=== PATIENT | male | born 1945 | race Caucasian/White ===

== ENCOUNTER 2025-03-12 14:24 | Inpatient (IN) ==
--- NOTE | 2025-03-12 15:24 | Emergency Department Note ---
Impression & Plan Ribs, multiple fractures, Fall from standing, Abrasion of forehead ED Provider Note NAME: GABRIELLE MORAN AGE: 79 SEX: M : 1945 ARRIVES VIA: Ambulance INFORMANT: Patient ED PROVIDER(S): Tony Lee MD CHIEF COMPLAINT: Fall, left flank pain PLAN: Disposition: Admit MEDICAL DECISION MAKING: The patient is a pleasant 79-year-old gentleman with a past medical history of hypertension, hyperlipidemia, GERD who presents to the emergency department via EMS for evaluation of a fall when he tripped in a parking lot at a hardware store. Patient reports he fell onto his left side and was unable to get up due to pain. Patient reports he grazed his forehead on the ground but did not have any significant head strike. He denies loss of consciousness. He denies any neck pain. Patient does not take anticoagulation. He does take a daily low-dose aspirin. On evaluation the patient uncomfortable but no acute distress, afebrile with stable vital signs. Left worship demonstrates small contusion with minor skin abrasion without overt laceration requiring repair. He exhibits tenderness of the left lateral thoracic region without bony crepitus. There is no midline CTL spine tenderness palpation or step-offs. Pelvis is stable. Hips with full range of motion bilaterally. WBC, H/H and platelets within normal limits. Chemistry without metabolic acidosis. Electrolytes and LFTs without significant abnormality. Lipase normal. UA without evidence of infection. RBCs are noted. CT of the head was negative for acute abnormalities. CT of the cervical spine negative for acute traumatic injury. Question of fragmentation of the tip of the dens which is described as a well-corticated and likely related to old injury. No listhesis is identified. Atlantoaxial arthritis is present and additional cervical degenerative changes are described. CT of the chest demonstrates minimally displaced left posterior seventh-10 posterior ribs. No hemo or pneumothorax. No overt pulmonary contusions. Atelectasis is described bilaterally. CT of the abdomen pelvis demonstrates bilateral perinephric stranding and cysts which are nonspecific. Otherwise no additional acute traumatic findings. Findings reviewed with the patient and at the bedside. Patient does agree with plan for admission for further management/pain control. Case was discussed with Dr. Wells, admitting resident and [place]. Mitchell, [facility] [place], who will evaluate the patient for admission. Case also discussed with [facility] general surgery ELOISE with Dr. Kim, general surgery on-call. Recommend pain control and pulmonary toilet/IS. Case also discussed with Dr. Bains, orthopedic spine. Agrees cervical spine findings of the dens are likely old given they are well-corticated. Out of caution recommend cervical collar and MRI in the morning and they will be available for inpatient consult in the morning. Appreciate consultations and recommendations. Admitting team updated. Triage Nursing notes reviewed and agree them. Prior/external medical records reviewed Vital Signs: reviewed Differential diagnosis: Fracture, dislocation, contusion, intra-abdominal, pneumothorax, intrathoracic, intracranial, neurologic, compartment syndrome, rhabdomyolysis, as well as other pathologies. ER treatment provided: See below. Diagnostics interpreted by me: Cardiac Monitoring: An order for continuous cardiac monitoring was placed and demonstrated normal sinus rhythm, 64 bpm, no ectopy. Laboratory studies: See below Imaging studies: See below Consultation(s): Dr. Mitchell, [facility] [place] [facility] ELOISE with Dr. Kim general surgery on-call. HPI: Per MDM. ROS: See above HPI for pertinent positives & negatives. A total of 10 systems reviewed and were otherwise negative. VITALS:See Below PHYSICAL EXAMINATION: Primary Survey Airway: Intact Breathing: Normal, breath sounds equal bilaterally Circulation: Skin warm, distal pulses 2+, capillary refill less than 2 seconds Disability Pupils: Equal and reactive to light. GCS: 15, E = 5 V=5 M= 5 Motor Function: Moves all extremities. Sensory: No deficits Secondary Survey GEN: Well developed and well-nourished HEAD: Normocephalic, small abrasion/contusion of the left worship without overt laceration requiring repair.. EYES: Pupils round reactive to light, conjunctiva clear, extraocular movements intact, no raccoons eyes ENT: No fluid in external acoustic canals, no hemotympanum, no yanes's sign, nares patent, no septal hematoma, oropharynx clear NECK: No JVD, midline trachea, No midline tenderness to palpation or step-offs. HEART: Regular rate and rhythm LUNGS: Clear to auscultation bilaterally. CHEST: Chest wall non-tender, no bruising/deformity ABD: No Hernandez-Stroud's or Kenney's sign, soft, non-tender, no rebound or guarding, PELVIS: Stable to rock BACK: No midline TL spine tenderness to palpation or step-offs. Tenderness of the left lateral thoracic region without bony crepitus. EXT: 2+ global pulses, moving all extremities well, +5/5 muscle strength globally NEURO: Normal sensorium. Cranial nerves II-XII grossly intact. 5/5 strength and SILT x 4 extremities. Tony Lee MD Past Med/Surg History Problem List (Updated 03/12/25 @ 22:32 by Tony Lee MD) Abrasion of forehead (Acute) Fall from standing (Acute) Ribs, multiple fractures (Acute) Chest pain Essential tremor PAD (peripheral artery disease) Medical History GERD (gastroesophageal reflux disease) Hypertension Esotropia Amblyopia Photophobia Hyperopia Unspecified disorder of eyelid Partially resolved traumatic cataract, right eye Tobacco user Pseudophakia Osteoarthritis of knees, bilateral Sleep-related breathing disorder Severe sleep apnea Elevated C-reactive protein Dysuria Unilateral primary osteoarthritis, left knee Urinary frequency Surgical History S/P carpal tunnel release S/P vasectomy S/P nasal polypectomy S/P arthroscopy of right knee Family History Family/Other Hypertension Diabetes Cancer Other Bleeding disorder Social History Smoking Status: Never smoker Tobacco Type: Cigarettes packs per day: 0.25; Do You Dip or Chew Tobacco: Yes (0.5 can ); Hx Alcohol Use: No Hx Substance Use: No Beliefs That Will Affect Care: None marital status: Current Living Situation: Spouse current occupational status: employed current occupation: [employer] Feels Safe at Home: Yes Assistive Devices: None Allergies Allergies Allergy/AdvReac Type Severity Reaction Status Date / Time Penicillins Allergy Unknown ? Verified 08/09/24 13:57 Sulfa (Sulfonamide Allergy Hives Verified 08/09/24 13:57 Antibiotics) Home Meds Home Medications Medication Instructions Recorded Confirmed amlodipine 5 mg tablet (Norvasc) 5 mg PO DAILY 07/10/21 03/12/25 celecoxib 200 mg capsule (Celebrex) 200 mg PO DAILY 07/10/21 03/12/25 omeprazole 20 mg capsule,delayed 20 mg PO DAILY 07/10/21 03/12/25 release cholecalciferol (vitamin D3) 25 25 mcg PO DAILY 09/09/21 03/12/25 mcg (1,000 unit) capsule aspirin 81 mg chewable tablet 81 mg PO DAILY 04/23/23 03/12/25 propranolol 20 mg tablet 0 mg PO BID 03/12/25 03/12/25 Previous Rx's Medication Instructions Recorded atorvastatin 20 mg tablet 20 mg PO DAILY #90 tabs 01/30/25 Results & Data (ED) Vital Signs Vital Signs - 24 hr 03/12/25 14:33 03/12/25 16:21 03/12/25 16:21 Temperature 37 C Temperature Source Oral Pulse Rate [Apical] 64 Pulse Rhythm [Apical] Regular Pulse Strength [Apical] Normal Respiratory Rate 20 22 Respiratory Effort / Characteristics Non-Labored Spontaneous Non-Labored Respiratory Depth Normal Normal Blood Pressure 180/86 H Blood Pressure [Right Arm] 150/77 H Blood Pressure Mean 117 Blood Pressure Mean [Right Arm] 101 Pulse Oximetry 94 93 93 Oxygen Delivery Method Room Air Room Air Room Air Sepsis Recent Fever Within 48 Hours No Sepsis New/Unexplained Change in Mental Status N/A Sepsis Action Taken by Nursing No Action Required Laboratory Data Attestation: I reviewed the patient's lab results. 03/12/25 15:35 03/12/25 15:35 Lab Results 03/12/25 03/12/25 03/12/25 Range/Units 15:35 15:53 17:24 WBC 7.51 (4.8-10.8) K/ul RBC 4.91 (4.70-6.10) M/uL Hgb 16.5 (14.0-18.0) g/dl POC Hgb 16.0 (14.0-18.0) g/dl Hct 48.6 (42.0-52.0) % POC Hct 47 (42-52) % MCV 99.0 (80.0-100.0) fL MCH 33.6 (25.0-34.0) pg MCHC 34.0 (32.0-36.0) g/dL RDW Std Deviation 46.8 H (36.4-46.3) fL RDW Coeff of Ziggy 12.9 (11.5-14.5) % Plt Count 228 (130-400) K/uL MPV 9.4 (9.4-12.4) fL Immature Gran % (Auto) 0.7 % Neut % (Auto) 79.0 % Lymph % (Auto) 9.9 % [place] % (Auto) 6.5 % Eos % (Auto) 3.2 % Baso % (Auto) 0.7 % Neut # (Auto) 5.94 (1.40-6.50) K/uL Lymph # (Auto) 0.74 L (1.20-3.40) K/uL [place] # (Auto) 0.49 (0.11-0.59) K/uL Eos # (Auto) 0.24 (0.00-0.50) K/uL Baso # (Auto) 0.05 (0.00-0.20) K/uL Immature Gran # (Auto) 0.05 (0.01-0.20) K/uL PT 11.0 (9.0-12.0) Seconds INR 1.0 (0.9-1.1) APTT 24 (21-31) Seconds PTT Ratio 0.9 POC Sodium 139 (135-144) mmol/L Sodium 138 (136-145) mmol/L POC Potassium 3.9 (3.3-5.0) mmol/L Potassium 4.1 (3.5-5.1) mmol/L POC Chloride 104 (101-112) mmol/L Chloride 105 (98-107) mmol/L Carbon Dioxide 29 (21-32) mmol/L POC Total CO2 25 (24-31) mmol/L Anion Gap 4 (3-11) POC Anion Gap 16.0 (16-25) mmol/L POC BUN 22 H (7-18) mg/dl BUN 21 (6-23) mg/dl Creatinine 0.92 (0.6-1.4) mg/dl POC Creatinine 0.9 (0.6-1.3) mg/dl Est Cr Clr Drug Dosing 72.4 ml/min eGFR 84.62 BUN/Creatinine Ratio 22.8 H (10-20) Glucose 107 H (70-99(Fasting)) mg/dl POC Glucose (other) 115 H (70-99) mg/dl Calcium 9.6 (8.6-10.3) mg/dl POC Ioniz Calcium Ye 1.18 (1.12-1.32) mmol/l Total Bilirubin 0.9 (0.2-1.0) mg/dl AST 22 (13-39) U/L ALT 17 (7-52) U/L Alkaline Phosphatase 89 (34-104) U/L Total Protein 7.4 (6.0-8.3) gm/dl Albumin 4.2 (3.4-5.0) gm/dl Globulin 3.2 (2.5-4.0) gm/dl Albumin/Globulin Ratio 1.3 (0.9-2) Lipase 31 (11-82) U/L Urine Color Yellow Urine Appearance Clear (Clear) Urine pH 6.5 (4.5-7.5) Ur Specific [place] 1.034 H (1.000-1.030) Urine Protein Trace H (Negative) Urine Glucose (UA) Negative (Negative) Urine Ketones Negative (Negative) Urine Blood 2+ H (Negative) Urine Nitrite Negative (Negative) Urine Bilirubin Negative (Negative) Urine Urobilinogen Negative (Negative) Ur Leukocyte Esterase Negative (Negative) Urine WBC (Auto) 0-5 (0-5) /hpf Urine RBC (Auto) >20 H (0-2) /hpf U Hyaline Cast (Auto) 0-2 (0-2) /lpf U Epithel Cells (Auto) 3-5 H (0-2) /hpf Urine Bacteria (Auto) None Seen (None Seen) Urine Comment Administered Medications Acetaminophen (Acetaminophen 325 Mg Tab) 650 mg PO Q4H [facility] Stop: 04/11/25 19:59 Last Admin: 03/12/25 20:10 Dose: 650 mg Documented By: KYLE Morphine Sulfate (Morphine Sulfate 2 Mg/Ml Carp) 2 mg IV Q4H PRN PRN Reason: Severe Pain (Scale 7, 8, 9,10) Stop: 03/26/25 19:44 Last Admin: 03/12/25 20:37 Dose: 2 mg Documented By: KYLE Oxycodone HCl (Oxycodone Hcl Ir 5 Mg Tab (Immediate Release)) 5 mg PO Q6H PRN PRN Reason: Moderate Pain (Scale 4, 5, 6) Stop: 03/26/25 19:44 Last Admin: 03/12/25 21:08 Dose: 5 mg Documented By: RICHELLE Discontinued Medications Enoxaparin Sodium (Enoxaparin Inj 40 Mg/0.4 Ml Syr) 40 mg SQ Q24H [facility] Stop: 04/11/25 18:59 Last Admin: 03/12/25 20:11 Dose: Not Given Documented By: KYLE Sodium Chloride (Nss) 500 mls @ 999 mls/hr IV .Q31M ONE Stop: 03/12/25 15:52 Last Infusion: 03/12/25 16:20 Dose: Infused Documented By: jarvis Admin: 03/12/25 15:41 Dose: 999 mls/hr Documented By: jarvis Acetaminophen (Ofirmev) 1,000 mg in 100 mls @ 400 mls/hr IV NOW STA Stop: 03/12/25 15:36 Last Infusion: 03/12/25 15:57 Dose: Infused Documented By: jarvis Admin: 03/12/25 15:41 Dose: 400 mls/hr Documented By: jarvis Ioversol (Optiray 320 100ml) 90 ml IV ONCE ONE Stop: 03/12/25 16:11 Last Admin: 03/12/25 16:12 Dose: 90 ml Documented By: HUBERT Ioversol (Optiray 320 100ml) 90 ml IV ONCE ONE Stop: 03/12/25 20:25 Last Admin: 03/12/25 20:25 Dose: 90 ml Documented By: HUBERT Lidocaine (Lidocaine 5% 1 Patch) 1 patch TD NOW STA Stop: 03/12/25 17:52 Last Admin: 03/12/25 18:01 Dose: 1 patch Documented By: jarvis Morphine Sulfate (Morphine Sulfate 2 Mg/Ml Carp) 2 mg IV NOW STA Stop: 03/12/25 15:23 Last Admin: 03/12/25 15:41 Dose: 2 mg Documented By: jarvis Morphine Sulfate (Morphine Sulfate 4 Mg/Ml 1 Ml Carp\Vial) 4 mg IV NOW STA Stop: 03/12/25 17:52 Last Admin: 03/12/25 18:02 Dose: 4 mg Documented By: jarvis Imaging Data Radiologist's Impression: Chest X-Ray 03/12/25 15:18 XR chest 1V portable CLINICAL HISTORY: Trauma COMPARISON STUDY: None FINDINGS: Heart size and pulmonary vasculature are normal. Inspiration is shallow. There is stranding opacity in the lung bases with partial obscuration of the diaphragm. No pneumothorax. No grossly displaced rib fracture seen. IMPRESSION: Bilateral lung base opacity could represent scarring, atelectasis, pneumonia, or pulmonary contusions. ACT 112: Negative or not required by law. Electronically signed by: Aj Lu M.D. 03/12/2025 3:59 PM Abdomen/Pelvis CT 03/12/25 15:21 EXAMINATION: CT of the abdomen and pelvis performed after the administration of IV contrast. TECHNIQUE: Helical CT images from the lung bases through the symphysis pubis were obtained with contrast. Coronal and sagittal reformatted images were generated at a workstation for further assessment. Dose reduction techniques were achieved by using automatic exposure control and/or adjustment of mA and/or kV according to patient size and/or use of iterative reconstruction technique. HISTORY: Pain postinjury. COMPARISON: None. FINDINGS: [employer] film demonstrates mild subsegmental atelectasis. Lung windows demonstrate mild bibasilar subsegmental atelectasis. Soft tissue windows demonstrate moderate calcified atherosclerotic changes coronary vasculature. Trace left effusion. Hypodensities bilateral kidneys likely representing benign cysts. Additional predominantly hypodensity of the superior left renal pole with dependent hyperdensities likely representing hemorrhagic cyst. Mild bilateral nonspecific perinephric fat stranding. Uncomplicated 5 mm nonobstructing right renal calculus. Likely urinary bladder diverticula. Uncomplicated large bowel diverticulosis. Appendix is not identified. No secondary findings of appendiceal disease. Small uncomplicated fat-containing umbilical and inguinal hernias. Remaining solid and hollow organs of the abdomen and pelvis are within normal limits. No free air or free fluid. Bone windows demonstrate essentially nondisplaced posterior left included 8 through 11th rib fractures. Multilevel degenerative changes of the spine. No additional appreciated acute fractures. IMPRESSION: 1. Minimally displaced posterior included left 8th through 11th rib fractures with associated subsegmental atelectasis and trace effusion. CT chest would be helpful for further characterization. 2. Nonspecific bilateral perinephric fat stranding with uncomplicated nephrolithiasis and likely benign cysts. Additional fluid/fluid level superior left renal pole likely representing a hemorrhagic cyst. If old studies exist recommend making them available for comparison purposes. Otherwise recommend nonemergent follow-up ultrasound. Please see above for details. Electronically signed by Xavi Parker 03-12-2025 5:[address] 03/12/25 15:21 Clinical history: Injury Technique: Axial computed tomography images were obtained of the cervical spine without intravenous contrast. Sagittal and coronal reconstructions were obtained Findings: No definite acute fracture is identified. There is well corticated fragmentation of the tip of the dens that could be due to old injury. No listhesis is seen. No focal osseous lesion is evident. There is atlantoaxial osteoarthritis At C2-3, there is a mild disc bulge. There is no spinal stenosis. The neural foramen are patent At C3-4, there is a disc bulge without spinal stenosis. There is bilateral neural foramen narrowing that may affect the exiting C4 nerve roots At C4-5, there is a mild disc bulge without spinal stenosis. There is right neural foramen narrowing that may affect the right C5 nerve root At C5-6, there is a disc bulge without spinal stenosis. There is bilateral neural foramen narrowing that may affect the exiting C6 nerve roots At C6-7, there is a disc bulge. There is no spinal stenosis. The neural foramen are patent At C7-T1, there is a mild disc bulge. There is no spinal stenosis. The neural foramen are patent The lung apices appear clear. The visualized soft tissues of the neck appear unremarkable. No foreign body is seen Impression: 1. No definite acute cervical spine fracture 2. Fragmentation of the tip of the dens that could be due to old injury 3. Bilateral C3-4, right C4-5, and bilateral C5-6 neural foramen narrowing, which may affect the exiting nerve roots Electronically signed by Charles Mann 03-12-2025 6:[address] 03/12/25 15:21 Clinical history: Injury Technique: Axial computed tomography images were obtained of the chest after the administration of intravenous contrast Findings: There is bilateral lung base atelectasis. There is no pleural effusion or pneumothorax. There is no sign of pulmonary fibrosis or other diffuse interstitial process. No endobronchial lesion is seen There is no mediastinal, hilar, or axillary adenopathy. The thoracic aorta appears unremarkable with no sign of aneurysm or dissection. There is no pericardial effusion. There is coronary atherosclerosis There is a 6 cm right renal calculus. There is a 2.3 cm mixed low attenuation and high attenuation lesion in the upper left kidney. There are acute mildly displaced fractures of the left posterior seventh, eighth, ninth, and 10th ribs Impression: 1. Acute fractures of the left seventh through 10th ribs 2. No pneumothorax 3. Bilateral lung base atelectasis 4. Complex left renal lesion that may represent a proteinaceous or hemorrhagic cyst but is indeterminate in nature. A follow-up dedicated renal protocol abdominal CT or MRI could be obtained ACT 112: Positive. There are findings on this exam that require communication between the performing entity and the patient following Patient Test Result Information Act ([place] ACT 112) guidelines. Electronically signed by Charles Mann 03-12-2025 5:[address] 03/12/25 15:21 Clinical History: Fall Technique: Axial computed tomography images were obtained of the brain without intravenous contrast. Findings: There is diffuse cerebral atrophy, within expected limits for the patient's age. Areas of decreased attenuation are seen within the periventricular white matter, likely representing chronic small vessel ischemic disease. There is no definite sign of acute or old infarction. No intracranial hemorrhage is evident. No definite mass lesion is seen on this noncontrast examination. There is no midline shift or other form of herniation. No hydrocephalus is seen. There is cavum septum pellucidum and cavum vergae, normal variants No fracture is identified. The orbits and the visualized paranasal sinuses appear unremarkable. The mastoid air cells appear clear. Impression: 1. Cerebral atrophy and chronic small vessel ischemic disease 2. Otherwise unremarkable noncontrast CT of the brain Electronically signed by Charles Mann 03-12-2025 4:40 PM Discharge Plan Visit Data Chief Complaint: Fall ED Provider: Tony Lee Discharge Problem: Ribs, multiple fractures, Fall from standing, Abrasion of forehead Patient Disposition: Admitted As Inpatient Condition: Fair Discharge Instructions Interventions: ED Discharge Assessment Last Done: 03/12/25 20:44 Discharge Problem: Ribs, multiple fractures Qualifiers: Encounter type: initial encounter Fracture type: closed Laterality: left Q ualified Code(s): S22.42XA - Multiple fractures of ribs, left side, initial encounter for closed fracture Fall from standing Qualifiers: Encounter type: initial encounter Qualified Code(s): W19.XXXA - Unspecified fall, initial encounter Abrasion of forehead Qualifiers: Encounter type: initial encounter Qualified Code(s): S00.81XA - Abrasion of other part of head, initial encounter
[2025-03-12] MEDS: MoRPHine SULFATE 2 MG/ML CARP IV STA (15:41)
[2025-03-12] MEDS: SODIUM CHLORIDE 0.9% 500 ML IV ONE (15:41)
[2025-03-12] MEDS: ACETAMINOPHEN 1,000 MG/100 ML VIAL IV STA (15:41)
[2025-03-12 15:51] LABS: Hematocrit (blood only) 48.6 % (42.0-52.0); Hemoglobin 16.5 g/dl (14.0-18.0); Immature Granulocytes # (auto) 0.05 K/uL (0.01-0.20); Immature Granulocytes % (auto) 0.7 %; Mean Corpuscular Hemoglobin 33.6 pg (25.0-34.0); Mean Corpuscular Volume 99.0 fL (80.0-100.0); Platelet Count 228 K/uL (130-400); RDW Standard Deviation 46.8 fL (36.4-46.3); Red Blood Count 4.91 M/uL (4.70-6.10); White Blood Count 7.51 K/ul (4.8-10.8)
--- NOTE | 2025-03-12 16:01 | XRay Report ---
XR chest 1V portable CLINICAL HISTORY: Trauma COMPARISON STUDY: None FINDINGS: Heart size and pulmonary vasculature are normal. Inspiration is shallow. There is stranding opacity in the lung bases with partial obscuration of the diaphragm. No pneumothorax. No grossly dis placed rib fracture seen. IMPRESSION: Bilateral lung base opacity could represent scarring, atelectasis, pneumonia, or pulmona ry contusions. ACT 112: Negative or not required by law. Electronically signed by: Aj Lu M.D. 03/12/2025 3:59 PM
[2025-03-12 16:09] LABS: Alanine Aminotransferase 17.0 U/L (7-52); Albumin Globulin Ratio 1.3 (0.9-2); Albumin Level 4.2 gm/dl (3.4-5.0); Alkaline Phosphatase 89.0 U/L (34-104); Anion Gap 4.0 (3-11); Bilirubin,Total 0.9 mg/dl (0.2-1.0); Blood Urea Nitrogen 21.0 mg/dl (6-23); Calcium 9.6 mg/dl (8.6-10.3); Carbon Dioxide 29.0 mmol/L (21-32); Chloride 105.0 mmol/L (98-107); Creatinine Clr Calc Pharmacy 72.4 ml/min; Globulin 3.2 gm/dl (2.5-4.0); Glucose 107.0 mg/dl (70-99(Fasting)); Lipase 31.0 U/L (11-82); Potassium 4.1 mmol/L (3.5-5.1); Sodium 138.0 mmol/L (136-145); Total Protein 7.4 gm/dl (6.0-8.3)
[2025-03-12] MEDS: OPTIRAY 320 100ml IV ONE ×2 (16:12→20:25)
[2025-03-12 16:22] LABS: INR 1.0 (0.9-1.1); Partial Thromboplastin Time 24 Seconds (21-31); Prothrombin Time 11.0 Seconds (9.0-12.0)
--- NOTE | 2025-03-12 16:40 | CT Scan Report ---
Clinical History: Fall Technique: Axial computed tomography images were obtained of the brain without intravenous contrast. Findings: There is diffuse cerebral atrophy, within expected limits for the patient's age. Areas of decreased attenuation are seen within the periventricular white matter, likely representing chronic small vessel ischemic disease. There is no definite sign of acute or old infarction. No intracranial hemorrhage is evident. No definite mass lesion is seen on this noncontrast examination. There is no midline shift or other form of herniation. No hydrocephalus is seen. There is cavum septum pellucidum and cavum vergae, normal variants No fracture is identified. The orbits and the visualized paranasal sinuses appear unremarkable. The mastoid air cells appear clear. Impression: 1. Cerebral atrophy and chronic small vessel ischemic disease 2. Otherwise unremarkable noncontrast CT of the brain Electronically signed by Charles Mann 03-12-2025 4:40 PM
--- NOTE | 2025-03-12 17:04 | CT Scan Report ---
Clinical history: Injury Technique: Axial computed tomography images were obtained of the chest after the administration of intravenous contrast Findings: There is bilateral lung base atelectasis. There is no pleural effusion or pneumothorax. There is no sign of pulmonary fibrosis or other diffuse interstitial process. No endobronchial lesion is seen There is no mediastinal, hilar, or axillary adenopathy. The thoracic aorta appears unremarkable with no sign of aneurysm or dissection. There is no pericardial effusion. There is coronary atherosclerosis There is a 6 cm right renal calculus. There is a 2.3 cm mixed low attenuation and high attenuation lesion in the upper left kidney. There are acute mildly displaced fractures of the left posterior seventh, eighth, ninth, and 10th ribs Impression: 1. Acute fractures of the left seventh through 10th ribs 2. No pneumothorax 3. Bilateral lung base atelectasis 4. Complex left renal lesion that may represent a proteinaceous or hemorrhagic cyst but is indeterminate in nature. A follow-up dedicated renal protocol abdominal CT or MRI could be obtained ACT 112: Positive. There are findings on this exam that require communication between the performing entity and the patient following Patient Test Result Information Act ([place] ACT 112) guidelines. Electronically signed by Charles Mann 03-12-2025 5:03 PM
[2025-03-12 17:45] LABS: Appearance Urine Clear (Clear); Bacteria Urine Automated None Seen (None Seen); Cast Urine Automated 0-2 /lpf (0-2); Glucose Urine UA Negative (Negative); RBC Urine Automated >20 /hpf (0-2); WBC Urine Automated 0-5 /hpf (0-5)
--- NOTE | 2025-03-12 17:57 | CT Scan Report ---
EXAMINATION: CT of the abdomen and pelvis performed after the administration of IV contrast. TECHNIQUE: Helical CT images from the lung bases through the symphysis pubis were obtained with contrast. Coronal and sagittal reformatted images were generated at a workstation for further assessment. Dose reduction techniques were achieved by using automatic exposure control and/or adjustment of mA and/or kV according to patient size and/or use of iterative reconstruction technique. HISTORY: Pain postinjury. COMPARISON: None. FINDINGS: Lead Esthetician film demonstrates mild subsegmental atelectasis. Lung windows demonstrate mild bibasilar subsegmental atelectasis. Soft tissue windows demonstrate moderate calcified atherosclerotic changes coronary vasculature. Trace left effusion. Hypodensities bilateral kidneys likely representing benign cysts. Additional predominantly hypodensity of the superior left renal pole with dependent hyperdensities likely representing hemorrhagic cyst. Mild bilateral nonspecific perinephric fat stranding. Uncomplicated 5 mm nonobstructing right renal calculus. Likely urinary bladder diverticula. Uncomplicated large bowel diverticulosis. Appendix is not identified. No secondary findings of appendiceal disease. Small uncomplicated fat-containing umbilical and inguinal hernias. Remaining solid and hollow organs of the abdomen and pelvis are within normal limits. No free air or free fluid. Bone windows demonstrate essentially nondisplaced posterior left included 8 through 11th rib fractures. Multilevel degenerative changes of the spine. No additional appreciated acute fractures. IMPRESSION: 1. Minimally displaced posterior included left 8th through 11th rib fractures with associated subsegmental atelectasis and trace effusion. CT chest would be helpful for further characterization. 2. Nonspecific bilateral perinephric fat stranding with uncomplicated nephrolithiasis and likely benign cysts. Additional fluid/fluid level superior left renal pole likely representing a hemorrhagic cyst. If old studies exist recommend making them available for comparison purposes. Otherwise recommend nonemergent follow-up ultrasound. Please see above for details. Electronically signed by Xavi Parker 03-12-2025 5:54 PM
[2025-03-12] MEDS: LIDOCAINE 5% 1 PATCH TD STA ×2 (18:01→22:25)
[2025-03-12] MEDS: MoRPHine SULFATE 4 MG/ML 1 ML CARP\\VIAL IV STA (18:02)
--- NOTE | 2025-03-12 18:06 | CT Scan Report ---
Clinical history: Injury Technique: Axial computed tomography images were obtained of the cervical spine without intravenous contrast. Sagittal and coronal reconstructions were obtained Findings: No definite acute fracture is identified. There is well corticated fragmentation of the tip of the dens that could be due to old injury. No listhesis is seen. No focal osseous lesion is evident. There is atlantoaxial osteoarthritis At C2-3, there is a mild disc bulge. There is no spinal stenosis. The neural foramen are patent At C3-4, there is a disc bulge without spinal stenosis. There is bilateral neural foramen narrowing that may affect the exiting C4 nerve roots At C4-5, there is a mild disc bulge without spinal stenosis. There is right neural foramen narrowing that may affect the right C5 nerve root At C5-6, there is a disc bulge without spinal stenosis. There is bilateral neural foramen narrowing that may affect the exiting C6 nerve roots At C6-7, there is a disc bulge. There is no spinal stenosis. The neural foramen are patent At C7-T1, there is a mild disc bulge. There is no spinal stenosis. The neural foramen are patent The lung apices appear clear. The visualized soft tissues of the neck appear unremarkable. No foreign body is seen Impression: 1. No definite acute cervical spine fracture 2. Fragmentation of the tip of the dens that could be due to old injury 3. Bilateral C3-4, right C4-5, and bilateral C5-6 neural foramen narrowing, which may affect the exiting nerve roots Electronically signed by Charles Mann 03-12-2025 6:06 PM
[2025-03-12] MEDS ORDERED: ACETAMINOPHEN 325 MG TAB PO PRN (18:58)
--- NOTE | 2025-03-12 19:07 | History & Physical Report ---
Date of Service March 12, 2025 Assessment & Plan (1) Ribs, multiple fractures: (2) Essential tremor: (3) PAD (peripheral artery disease): (4) GERD (gastroesophageal reflux disease): (5) Hypertension: Plan 79 yo M with PMHx of essential tremor, PAD, HTN who presents to the hospital due to ground level mechanical fall. #Mechanical fall/multiple contiguous L rib fractures/L arm and shoulder pain - A/P CT shows 8-11 rib fx with atelectasis and trace effusion, hemorrhagic cyst, nonspecific b/l perinephric fat stranding with uncomplicated nephrolithiasis - Chest CT shows acute fx of 7-10 ribs, atelectasis, complex L renal lesion cyst - Cervical spine CT shows no fracture, foramen narrowing, fragmentation of tip of dens that could be due to old injury - ED provider spoke with orthopedics spine team who agree that dens finding is likely old, recommend cervical collar and cervical MRI in AM - Not sure if hemorrhagic cyst is correlated with trauma, follow up renal CT unremarkable - UA 2+ blood, >20 RBC, 3-5 epithelial cells, trace protein - L shoulder and humerus XR normal - Tylenol 650 mg scheduled q4h - Morphine 2 mg IV q4 prn for severe pain - Oxycodone 5 mg q6 prn for moderate pain - ECHO US pending in AM, to r/o chance of trauma-induced pericardial effusion - Troponin AM pending - Surgery consult appreciated, recommend serial X-rays, IS - PT/OT #HTN - continue home medications #Tremor - home propranolol held, patient unaware of exact home dose Dispo: ICU Diet: heart healthy Code status: Full History of Present Illness Chief Complaint: Fall Primary Care Provider: Reji Elisherri 79 yo M with PMHx of essential tremor, PAD, HTN who presents to the hospital due to ground level mechanical fall. Around 1:30pm today, patient tripped on a curb in the parking lot and fell on his L side. States he lightly hit his head, but did not lose consciousness. He was not able to stand up after the fall, however a bystander was able to help him up and call 911. Denies dizziness or lightheadedness at the time of the fall. He has not been able to wear weight since the fall. Reports pain mainly in his left posterior ribs and left arm. Rates his pain 4/10 when he is not moving and 15/10 when he is moving. Denies CP, SOB, F/C, N/V, AP. Denies urinary symptoms or changes in bowel movements. He has history of R sided rib fractures in the 1980s and states this pain is very similar. Allergies Allergy/AdvReac Type Severity Reaction Status Date / Time Penicillins Allergy Unknown ? Verified 08/09/24 13:57 Sulfa (Sulfonamide Allergy Hives Verified 08/09/24 13:57 Antibiotics) Home Medications Medication Instructions Recorded Confirmed Type amlodipine 5 mg tablet (Norvasc) 5 mg PO DAILY 07/10/21 03/12/25 History celecoxib 200 mg capsule (Celebrex) 200 mg PO DAILY 07/10/21 03/12/25 History omeprazole 20 mg capsule,delayed 20 mg PO DAILY 07/10/21 03/12/25 History release cholecalciferol (vitamin D3) 25 25 mcg PO DAILY 09/09/21 03/12/25 History mcg (1,000 unit) capsule aspirin 81 mg chewable tablet 81 mg PO DAILY 04/23/23 03/12/25 History atorvastatin 20 mg tablet 20 mg PO DAILY #90 tabs 01/30/25 03/12/25 Rx propranolol 20 mg tablet 0 mg PO BID 03/12/25 03/12/25 History Past Med/Surg History Problem List (Updated 03/13/25 @ 16:03 by Dirk Montero MD) Hypoxemia Closed fracture of dens without spinal cord injury ELAINE (obstructive sleep apnea) Acute pain Abnormal CT scan, cervical spine Abrasion of forehead (Acute) Fall from standing (Acute) Ribs, multiple fractures (Acute) Chest pain Essential tremor PAD (peripheral artery disease) Medical History GERD (gastroesophageal reflux disease) Hypertension Esotropia Amblyopia Photophobia Hyperopia Unspecified disorder of eyelid Partially resolved traumatic cataract, right eye Tobacco user Pseudophakia Osteoarthritis of knees, bilateral Sleep-related breathing disorder Severe sleep apnea Elevated C-reactive protein Dysuria Unilateral primary osteoarthritis, left knee Urinary frequency Surgical History S/P carpal tunnel release S/P vasectomy S/P nasal polypectomy S/P arthroscopy of right knee Family History Family/Other Hypertension Diabetes Cancer Other Bleeding disorder Social History Smoking Status: Current every day smoker Tobacco Type: Cigarettes and Smokeless Tobacco (Dip or Chew) packs per day: 0.25; Second Hand Exposure: No; Do You Dip or Chew Tobacco: Yes; Hx Alcohol Use: No Hx Substance Use: No Preferred Language: [place] Communication Ability: Effective Braddisher Required: No Beliefs That Will Affect Care: None marital status: Current Living Situation: Spouse current occupational status: employed current occupation: [employer] Feels Safe at Home: Yes Assistive Devices: Walker Review of Systems Review of Systems: All systems reviewed & are unremarkable except as noted in HPI & below Physical Exam Constitutional: + physical limitations (painful with mov ement) Respiratory: normal respiratory effort, lungs clear to auscultation Cardiovascular: RRR, no murmur, no edema Gastrointestinal (Abdomen): normal bowel sounds, soft, nontender, no hepatosplenomegaly Skin: no rashes, warm and dry Psychiatric: A+Ox3, euthymic affect Results & Data Results & Data Vital Signs (Past 12 Hours) Vital Signs Temp Pulse Resp BP BP Pulse Ox O2 Del Method 03/12/25 16:21 64 22 150/77 H 93 Room Air 03/12/25 16:21 93 Room Air 03/12/25 14:33 37 C 20 180/86 H 94 Room Air Code Status & VTE Plan VTE Prophylaxis Plan VTE Prophylaxis will be ordered: Yes Critical Care Time 41 minutes Supervising Physician Co-Signing Physician Notes attending addendum: I have physically seen this patient, have supervised the medical residents activities, and agree with the H&P unless as otherwise noted. Assessment and Plan: The patient is a 79-year-old male with past medical history including essential tremor, PAD, hypertension, hyperlipidemia, and GERD. He presents to the emergency department due to ground-level fall onto his left side, with x- rays noting four contiguous left-sided rib fractures. Ground-level fall/4 contiguous left-sided rib fractures- CT chest notes 7 through 10, atelectasis, and a complex left renal lesion cyst. CT of cervical spine shows no fracture, foramen narrowing, fragmentation of the tip of dens that could be due to old injury. CT scan of the abdomen and pelvis notes minimally displaced 8 through 11 rib fractures. Left-sided rib fractures noted as 7 through 10 versus 8 through 11- No suggestion of pneumothorax or pulmonary contusion. Atelectasis is noted likely secondary to decreased inspiratory effort due to pain. The patient will be admitted to the ICU for close monitoring. Fragmentation of the tip of the dens- Reported that could be due to old injury Orthopedic spine surgery was consulted, and they recommended cervical collar and evaluation with MRI, but suggested this is likely old Consult orthopedic spine surgery Hemorrhagic left side renal cyst- 2+ blood and >20 RBCs, 3-5 epithelial cells, and trace protein noted in urine Ordered follow-up renal CT with and without contrast to further assess if this was secondary to trauma. This CT was unremarkable. Pain control- Acetaminophen 650 mg by mouth every 6 hours ATC. Oxycodone 5 mg by mouth every 6 hours as needed for moderate pain Morphine 2 mg IV every 4 hours as needed for severe pain Hypertension/Tremor- Continue home medications Ordering echocardiogram to assess for possible secondary trauma Resident Activity Tracking Resident Involvement: Resident Care Provided Care Provided: Adult [facility]
--- NOTE | 2025-03-12 19:59 | Surgery Consultation ---
Date of Consultation March 12, 2025 Assessment & Plan (1) Ribs, multiple fractures: I evaluated the patient room D5 at the request of the treating emergent physician. Surgical recommendations are as follows: Patient has multiple nondisplaced rib fractures. I discussed with the patient that the mainstay treatment for these at this point in time will be adequate analgesicsI discussed with the admitting hospital service they are in the process of initiating analgesics. I have recommended that they use scheduled acetaminophen with other medications such as narcotic pain medications or Toradol on an as-needed basis. If the patient fails to achieve adequate pain control with these measures consideration may be given to consulting anesthesia for potential intercostal block or an epidural but the need for this is yet to be determined I discussed with the patient the importance of coughing and deep breathing as well as use of incentive spirometry so he does not get pneumonia Would recommend following serial chest x-rays to see if there is any development of pneumothorax, pleural effusion, or pulmonary contusion and if these conditions develop can be treated accordingly Would mobilize as able Due to the patient's recent fall and noted pain would recommend getting PT and OT consultations prior to discharge home Additional recommendations be forthcoming based on his clinical course as it unfolds History of Present Illness Reason for Consultation: Multiple left-sided rib fractures History of Present Illness This is a 79-year-old male who presented the emergency department secondary to left chest wall pain. The patient notes that he was walking in a parking lot when he tripped on a curb landing on his left side. He notes that since this time he has pain of his left chest wall in the lateral aspect as well as posteriorly. He notes that the pain is worse with taking deep inspirations. He notes that he has not coughed up any blood. He does not report any shortness of breath but he does report it is difficult to take deep inspirations due to the pain. Since arrival to the hospital this patient has had labs and imaging which I independent reviewed. A chest x-ray was performed that showed bilateral lung opacities felt to represent either scarring, atelectasis, pneumonia, or pulmonary contusions. A CT scan of the abdomen pelvis was performed that showed minimally displaced posterior rib fractures involving the left 8th through 11th ribs. There is a trace pleural effusion noted. His cervical spine CT scan showed no acute cervical spine fractures. A CT scan of the chest showed acute fractures involving the left ribs numbers 7 through 10. There is no pneumothorax noted. A CT scan of the head was performed that showed cerebral a trophy and chronic small vessel disease with no other acute findings. Labs included CBC white blood cell count, hemoglobin, hematocrit, and platelet count were normal. Coagulation studies were normal. Chemistry profile showed sodium, potassium, BUN, and creatinine were normal. Urinalysis was not indicative of infection. At the time my interview the patient noted pain of his left chest wall. He was in no distress. Allergies Allergy/AdvReac Type Severity Reaction Status Date / Time Penicillins Allergy Unknown ? Verified 08/09/24 13:57 Sulfa (Sulfonamide Allergy Hives Verified 08/09/24 13:57 Antibiotics) Home Medications Medication Instructions Recorded Confirmed Type amlodipine 5 mg tablet (Norvasc) 5 mg PO DAILY 07/10/21 03/12/25 History celecoxib 200 mg capsule (Celebrex) 200 mg PO DAILY 07/10/21 03/12/25 History omeprazole 20 mg capsule,delayed 20 mg PO DAILY 07/10/21 03/12/25 History release cholecalciferol (vitamin D3) 25 25 mcg PO DAILY 09/09/21 03/12/25 History mcg (1,000 unit) capsule aspirin 81 mg chewable tablet 81 mg PO DAILY 04/23/23 03/12/25 History atorvastatin 20 mg tablet 20 mg PO DAILY #90 tabs 01/30/25 03/12/25 Rx propranolol 20 mg tablet 0 mg PO BID 03/12/25 03/12/25 History Patient History Medical History GERD (gastroesophageal reflux disease) Hypertension Esotropia Amblyopia Photophobia Hyperopia Unspecified disorder of eyelid Partially resolved traumatic cataract, right eye Tobacco user Pseudophakia Osteoarthritis of knees, bilateral Sleep-related breathing disorder Severe sleep apnea Elevated C-reactive protein Dysuria Unilateral primary osteoarthritis, left knee Urinary frequency Surgical History S/P carpal tunnel release S/P vasectomy S/P nasal polypectomy S/P arthroscopy of right knee Family History Family/Other Hypertension Diabetes Cancer Other Bleeding disorder Social History Smoking Status: Never smoker Tobacco Type: Cigarettes packs per day: 0.25; Do You Dip or Chew Tobacco: Yes (0.5 can ); Hx Alcohol Use: No Hx Substance Use: No Beliefs That Will Affect Care: None marital status: Current Living Situation: Spouse current occupational status: employed current occupation: [employer] Feels Safe at Home: Yes Assistive Devices: None Review of Systems Review of Systems: All systems reviewed & are unremarkable except as noted in HPI & below Physical Exam Constitutional: WD/WN, vitals as above Eyes: no conjunctival abnormality ENMT: Ears: no hearing impairment and no external ear abnormality Mouth: no oropharynx abnormality Neck: trachea midline Respiratory: Breath sounds are noted to be decreased bilaterally, likely secondary to decreased inspiratory effort due to pain. He was not using accessory muscles to aid in respiration. I did not appreciate any wheezing. I did not appreciate any ecchymosis of the patient's chest wall. The patient did have point tenderness on the left anterior lateral and posterior aspects of his chest wall. I did not appreciate any step-offs or deformities. Cardiovascular: Rate/Rhythm: regular rate and regular rhythm Gastrointestinal (Abdomen): Soft and nontender to palpation Musculoskeletal: No calf tenderness Skin: no rashes Neurologic: moves all extremities Psychiatric: A+Ox3, euthymic affect Results & Data Vital Signs (Past 12 Hours) Vital Signs Temp Pulse Resp BP BP Pulse Ox O2 Del Method 03/12/25 19:38 81 21 134/81 97 Room Air 03/12/25 16:21 64 22 150/77 H 93 Room Air 03/12/25 16:21 93 Room Air 03/12/25 14:33 37 C 20 180/86 H 94 Room Air PG Care Time/CCT Total # of Minutes Spent Total Time Spent with Patient: Total time spent is greater than 50% in coordination of care (as documented) at patient's floor/unit and/or counseling patient: Coding Level of Care Code 51673 INT INP/OBS CARE 3/75MIN Diagnoses Ribs, multiple fractures S22.49XA
[2025-03-12] MEDS: ACETAMINOPHEN 325 MG TAB PO SCH (20:10)
[2025-03-12] MEDS: ENOXAPARIN INJ 40 MG/0.4 ML SYR SQ SCH (20:11)
[2025-03-12] MEDS: MoRPHine SULFATE 2 MG/ML CARP IV PRN (20:37)
[2025-03-12] MEDS ORDERED: NALOXONE HCL 0.4 MG/1 ML VIAL/CARP IV PRN (21:24)
--- NOTE | 2025-03-12 21:54 | CT Scan Report ---
Exam(s): CT RENAL W/WO Contrast IV Amt: 90 ML OPTIRAY 320 EXAM: CT Abdomen Without and With Intravenous Contrast CLINICAL HISTORY: Reason for exam: evaluate for hemorrhage/contusion. TECHNIQUE: Axial computed tomography images of the abdomen without and with intravenous contrast. CTDI is 28.14 mGy and DLP is 2723.8 mGy-cm. Automated exposure control was utilized for the study. A dose lowering technique was utilized adhering to the principles of ALARA. CONTRAST: Patient received 90 ML OPTIRAY 320 of IV contrast COMPARISON: No relevant prior studies available. FINDINGS: Lung bases: 2.6 cm left upper pole complex renal cysts. 1.7 cm right renal cysts. 3.2 cm left renal cysts. Both kidneys opacify within excrete contrast in a normal symmetric fashion. Bibasilar dependent atelectasis with trace bilateral pleural effusions. Liver: Unremarkable. No mass. Gallbladder and bile ducts: Unremarkable. No calcified stones. No ductal dilation. Pancreas: Unremarkable. No mass. No ductal dilation. Spleen: Unremarkable. No splenomegaly. Adrenals: Unremarkable. No mass. Kidneys and ureters: Unremarkable. No solid mass. No obstructing stones. No hydronephrosis. Stomach and bowel: Unremarkable. No obstruction. No mucosal thickening. Intraperitoneal space: Unremarkable. No free air. No significant fluid collection. Bones/joints: Minimally displaced left posterior 10th and 9th rib fractures. No dislocation. Soft tissues: Unremarkable. Vasculature: Unremarkable. No abdominal aortic aneurysm. Lymph nodes: Unremarkable. No enlarged lymph nodes. IMPRESSION: Trace bilateral pleural effusions Nondisplaced left posterior 9th and 10th rib fractures Bilateral renal cysts unremarkable on this exam No hydroureteronephrosis. Electronically signed by: Eren Sim MD 03/12/25 21:53 PM
--- NOTE | 2025-03-12 21:58 | Critical Care Consultation ---
<Statement entered by Dirk Montero MD - 03/13/25 18:22> I, Dirk Montero MD, reviewed the physical exam, assessment, plan, and management as documented by the Advanced Care Provider Roni LEE ([facility]) for this patient encounter. I discussed the case with them, confirmed the findings, and I concur with the proposed plan of care. I was available for consultation throughout the encounter and provided guidance as needed. I separately evaluated the patient for dixon portions of the history and the exam. I was present during the critical portion of medical decision making, and I discussed the case with the Advanced Care Provider Roni LEE ([facility]). I agree with the findings and plan except for any additions/exceptions noted. Date of Consultation March 12, 2025 Assessment & Plan (1) Fall from standing: (2) Ribs, multiple fractures: (3) Essential tremor: (4) Abnormal CT scan, cervical spine: (5) Acute pain: (6) ELAINE (obstructive sleep apnea): Plan Reason Critically Ill: 79 YOM presents to hospital s/p fall from tripping over curb and landing on left side, resulting in multiple left sided rib fractures. To the ICU for pain control, monitoring of pulmonary status and hemodynamics. Neuro - Acute pain, abnormal cervical CT, HX; Essential tremor CAM ICU: NEGATIVE - Imaging reviewed and interpretations reviewed- recommend clarification of "fragmentation of the tip of DENS that could be related to old injury" with ortho spine or NSGY. - Acute pain from rib fractures - Multi-tiered pain control- Tylenol, morphine for severe pain (can adjust dose and interval if needed), oral oxy (moderate pain), Robaxin for spasms, Lidocaine patch - Provide rolled blanket or towel for splinting - Consider pain/anesthesia consultation to evaluate for nerve block if appropriate - Essential tremor- continue with Propranolol [id number]: consulted- recommends cervical collar at this time with cervical MRI and will see him in morning as reported to me by admitting service - hard collar will be placed. MRI patient companion Cardiac - No acute needs, HX: PAD, HLD - ECG on arrival to ICU for baseline, previous stress test negative in 10/07 - PAD continue asa when able from bleeding risk standpoint- likely resume in 24- 48 hours Respiratory - Rib fractures - multiple rib fractures in 79 YOM - increased risk for atelectasis, pneumonia, and hypoxia - pain control as above - Splint with moving, coughing, deep breathing - ICS every hour - OOB to chair TID with assistance- - ELAINE biPAP 04/23 GI - No acute need - nausea with pain medications- provide zofran RENAL/LYTES - Cyst, hematuria - CT abd/pelvis -renal CT- completed with report of unremarkable bilateral renal cysts - urine has cleared will follow - As above ENDO - No acute needs HEME - No acute needs no evidence of hemorrhage at this time - type and cross completed - transfuse for active bleeding, HGB <7 or symptomatic ID - No concern at this time for infective process LINES/IV ACCESS - PIV Continue use of these lines DVT PROPHYLAXIS - SCDS, hold on chemoprophylaxis until no evidence of bleeding or delayed hemothorax. DISPO: ICU until pain controlled and stable from pulmonary and hemodynamic pe rspective I have personally spent 40 minutes of critical care time in the direct management of this patient. This is a life/limb threatening event. This includes time spent evaluating patient, direct bedside care, chart review, placing orders, interpretation of diagnostic studies, discussion with consultants, patient, and family members, as well as other required patient management activities. This time is exclusive of all separately billable procedures, and teaching time and separate from and in addition to any other critical care service time. Thank you for allowing us to participate in the care of this patient. Please refer to my attending physician's documentation for any further recommendations. History of Present Illness Reason for Consultation: truamatic rib fractures- pain control, pulmonary support Requesting Physician: John Mitchell MD Attending Physician: John Mitchell MD History of Present Illness 79 YOM with medical history of: Essential tremor, PAD- with reported well collateralized LT, OA with bilateral knee replacements, Negative Dobutamine stress test 10/07, HLD. Patient presents to the ER today via EMS after sustaining a fall in parking lot at a store out on town. Patient reports that he was walking and tripped over a curb, landing on his LEFT side, arm, and back. He reports that he did bump his left side of his head, however did not lose consciousness post fall or at any time during his evaluation and admission process. He was unable to get up with assistance and therefore EMS was called. In the ER by chart review, had primary and secondary surveys completed, imaging completed with CXR of chest, CT scan of abdomen/pelvis, cervical spine, chest CT, head CT completed. He had surgical evaluation completed as Trauma with rib fractures. Further evaluation revealed left arm and left shoulder pain, and that was also imaged, there was concern as well from admitting team with cyst on left kidney that was interpreted as hemorrhagic cyst possible, so renal CT with and without contrast was also completed. Patient had some blood in his initial urine sample, but reportedly this cleared. Imaging notes: Rib fractures that are "mildly displaced LEFT 7,8,9,10 ribs" without pneumothorax or hemothorax/contusion reported. head CT negative, Cervical spine- with mention of Dens fragmentation that possibly due to old injury- but no definite cervical fracture, patient not in collar. ICU consulted for multiple rib fractures, pain control, pulmonary and hemodynamic support. CODE: FULL Allergies Allergy/AdvReac Type Severity Reaction Status Date / Time Penicillins Allergy Unknown ? Verified 08/09/24 13:57 Sulfa (Sulfonamide Allergy Hives Verified 08/09/24 13:57 Antibiotics) Home Medications Medication Instructions Recorded Confirmed Type amlodipine 5 mg tablet (Norvasc) 5 mg PO DAILY 07/10/21 03/12/25 History celecoxib 200 mg capsule (Celebrex) 200 mg PO DAILY 07/10/21 03/12/25 History omeprazole 20 mg capsule,delayed 20 mg PO DAILY 07/10/21 03/12/25 History release cholecalciferol (vitamin D3) 25 25 mcg PO DAILY 09/09/21 03/12/25 History mcg (1,000 unit) capsule aspirin 81 mg chewable tablet 81 mg PO DAILY 04/23/23 03/12/25 History atorvastatin 20 mg tablet 20 mg PO DAILY #90 tabs 01/30/25 03/12/25 Rx propranolol 20 mg tablet 0 mg PO BID 03/12/25 03/12/25 History Patient History Medical History GERD (gastroesophageal reflux disease) Hypertension Esotropia Amblyopia Photophobia Hyperopia Unspecified disorder of eyelid Partially resolved traumatic cataract, right eye Tobacco user Pseudophakia Osteoarthritis of knees, bilateral Sleep-related breathing disorder Severe sleep apnea Elevated C-reactive protein Dysuria Unilateral primary osteoarthritis, left knee Urinary frequency Surgical History S/P carpal tunnel release S/P vasectomy S/P nasal polypectomy S/P arthroscopy of right knee Family History Family/Other Hypertension Diabetes Cancer Other Bleeding disorder Social History Smoking Status: Never smoker Tobacco Type: Cigarettes packs per day: 0.25; Do You Dip or Chew Tobacco: Yes (0.5 can ); Hx Alcohol Use: No Hx Substance Use: No Beliefs That Will Affect Care: None marital status: Current Living Situation: Spouse current occupational status: employed current occupation: [employer] Feels Safe at Home: Yes Assistive Devices: None Review of Systems Review of Systems: REVIEW OF SYSTEMS: Constitutional: No fever, sweats or chills Eyes: No diplopia, no worsening or blurred vision ENT: normal hearing, no trouble swallowing Respiratory: No cough, sputum, dyspnea at rest or on exertion Cardiovascular: (+) left side lateral thoracic pain, no central tightness or palpitations Abdomen: No pain, nausea, vomiting, diarrhea or constipation Musculoskeletal: (+) back and side pain, pain to left upper arm and shoulder, Neurologic: (+) chronic tremor, No weakness, numbness/tingling, or balance problems Psychiatric: No anxiety or depression Skin: (+) hematoma, closed abrasion to left forehead Physical Exam Physical Exam: PHYSICAL EXAM: General: awake, alert, in pain Head: abrasion left forehead with small hematoma, ENT: PERRLA, EOMI, no eye pain, no pharyngeal exudate, mucous membranes moist, no blood Neuro: AAO x 3, speech clear and appropriate, strength intact bilaterally 5/5, sensation intact and equal all extremities and dermatomes, no pronator drift, cervical spine without tenderness, full ROM without pain. Chest: equal rise and fall of the chest, no accessory muscle use, no heaves or thrills, Clear to auscultation, on 2LNC Cardiac: Regular rate and rhythm, telemetry reviewed- NSR no ectopy, skin warm dry, cap refill <3 seconds, peripheral pulses +2 no JVD, no murmur, no edema GI: NABS x 4 quadrants, soft, nontender to palpation, no rebound, guarding or tenderness : Spontaneously voiding, no CVA tenderness, Psych: Normal mood and affect Skin: abrasion as above, no other bruising or abrasions appreciated Results & Data Results & Data Vital Signs (Past 12 Hours) Vital Signs Temp Pulse Resp BP BP Pulse Ox O2 Del Method 03/12/25 20:41 92 Nasal Cannula 03/12/25 20:14 66 18 147/84 H 98 Room Air 03/12/25 19:38 81 21 134/81 97 Room Air 03/12/25 16:21 64 22 150/77 H 93 Room Air 03/12/25 16:21 93 Room Air 03/12/25 14:33 37 C 20 180/86 H 94 Room Air O2 Flow Rate 03/12/25 20:41 2 03/12/25 20:14 03/12/25 19:38 03/12/25 16:21 03/12/25 16:21 03/12/25 14:33 Laboratory Results Abnormal lab results 03/12/25 03/12/25 03/12/25 Range/Units 15:35 15:53 17:24 RDW Std Deviation 46.8 H (36.4-46.3) fL Lymph # (Auto) 0.74 L (1.20-3.40) K/uL POC BUN 22 H (7-18) mg/dl BUN/Creatinine Ratio 22.8 H (10-20) Glucose 107 H (70-99(Fasting)) mg/dl POC Glucose (other) 115 H (70-99) mg/dl Ur Specific Kennedy 1.034 H (1.000-1.030) Urine Protein Trace H (Negative) Urine Blood 2+ H (Negative) Urine RBC (Auto) >20 H (0-2) /hpf U Epithel Cells (Auto) 3-5 H (0-2) /hpf Diagnostic Findings Chest X-Ray 03/12/25 15:18 XR chest 1V portable CLINICAL HISTORY: Trauma COMPARISON STUDY: None FINDINGS: Heart size and pulmonary vasculature are normal. Inspiration is shallow. There is stranding opacity in the lung bases with partial obscuration of the diaphragm. No pneumothorax. No grossly displaced rib fracture seen. IMPRESSION: Bilateral lung base opacity could represent scarring, atelectasis, pneumonia, or pulmonary contusions. ACT 112: Negative or not required by law. Electronically signed by: Aj Lu M.D. 03/12/2025 3:59 PM Abdomen/Pelvis CT 03/12/25 15:21 EXAMINATION: CT of the abdomen and pelvis performed after the administration of IV contrast. TECHNIQUE: Helical CT images from the lung bases through the symphysis pubis were obtained with contrast. Coronal and sagittal reformatted images were generated at a workstation for further assessment. Dose reduction techniques were achieved by using automatic exposure control and/or adjustment of mA and/or kV according to patient size and/or use of iterative reconstruction technique. HISTORY: Pain postinjury. COMPARISON: None. FINDINGS: Logistics Specialist film demonstrates mild subsegmental atelectasis. Lung windows demonstrate mild bibasilar subsegmental atelectasis. Soft tissue windows demonstrate moderate calcified atherosclerotic changes coronary vasculature. Trace left effusion. Hypodensities bilateral kidneys likely representing benign cysts. Additional predominantly hypodensity of the superior left renal pole with dependent hyperdensities likely representing hemorrhagic cyst. Mild bilateral nonspecific perinephric fat stranding. Uncomplicated 5 mm nonobstructing right renal calculus. Likely urinary bladder diverticula. Uncomplicated large bowel diverticulosis. Appendix is not identified. No secondary findings of appendiceal disease. Small uncomplicated fat-containing umbilical and inguinal hernias. Remaining solid and hollow organs of the abdomen and pelvis are within normal limits. No free air or free fluid. Bone windows demonstrate essentially nondisplaced posterior left included 8 through 11th rib fractures. Multilevel degenerative changes of the spine. No additional appreciated acute fractures. IMPRESSION: 1. Minimally displaced posterior included left 8th through 11th rib fractures with associated subsegmental atelectasis and trace effusion. CT chest would be helpful for further characterization. 2. Nonspecific bilateral perinephric fat stranding with uncomplicated nephrolithiasis and likely benign cysts. Additional fluid/fluid level superior left renal pole likely representing a hemorrhagic cyst. If old studies exist recommend making them available for comparison purposes. Otherwise recommend nonemergent follow-up ultrasound. Please see above for details. Electronically signed by Xavi Parker 03-12-2025 5:[address] 03/12/25 15:21 Clinical history: Injury Technique: Axial computed tomography images were obtained of the cervical spine without intravenous contrast. Sagittal and coronal reconstructions were obtained Findings: No definite acute fracture is identified. There is well corticated fragmentation of the tip of the dens that could be due to old injury. No listhesis is seen. No focal osseous lesion is evident. There is atlantoaxial osteoarthritis At C2-3, there is a mild disc bulge. There is no spinal stenosis. The neural foramen are patent At C3-4, there is a disc bulge without spinal stenosis. There is bilateral neural foramen narrowing that may affect the exiting C4 nerve roots At C4-5, there is a mild disc bulge without spinal stenosis. There is right neural foramen narrowing that may affect the right C5 nerve root At C5-6, there is a disc bulge without spinal stenosis. There is bilateral neural foramen narrowing that may affect the exiting C6 nerve roots At C6-7, there is a disc bulge. There is no spinal stenosis. The neural foramen are patent At C7-T1, there is a mild disc bulge. There is no spinal stenosis. The neural foramen are patent The lung apices appear clear. The visualized soft tissues of the neck appear unremarkable. No foreign body is seen Impression: 1. No definite acute cervical spine fracture 2. Fragmentation of the tip of the dens that could be due to old injury 3. Bilateral C3-4, right C4-5, and bilateral C5-6 neural foramen narrowing, which may affect the exiting nerve roots Electronically signed by Charles Mann 03-12-2025 6:[address] 03/12/25 15:21 Clinical history: Injury Technique: Axial computed tomography images were obtained of the chest after the administration of intravenous contrast Findings: There is bilateral lung base atelectasis. There is no pleural effusion or pneumothorax. There is no sign of pulmonary fibrosis or other diffuse interstitial process. No endobronchial lesion is seen There is no mediastinal, hilar, or axillary adenopathy. The thoracic aorta appears unremarkable with no sign of aneurysm or dissection. There is no pericardial effusion. There is coronary atherosclerosis There is a 6 cm right renal calculus. There is a 2.3 cm mixed low attenuation and high attenuation lesion in the upper left kidney. There are acute mildly displaced fractures of the left posterior seventh, eighth, ninth, and 10th ribs Impression: 1. Acute fractures of the left seventh through 10th ribs 2. No pneumothorax 3. Bilateral lung base atelectasis 4. Complex left renal lesion that may represent a proteinaceous or hemorrhagic cyst but is indeterminate in nature. A follow-up dedicated renal protocol abdominal CT or MRI could be obtained ACT 112: Positive. There are findings on this exam that require communication between the performing entity and the patient following Patient Test Result Information Act ([place] ACT 112) guidelines. Electronically signed by Charles Mann 03-12-2025 5:[address] 03/12/25 15:21 Clinical History: Fall Technique: Axial computed tomography images were obtained of the brain without intravenous contrast. Findings: There is diffuse cerebral atrophy, within expected limits for the patient's age. Areas of decreased attenuation are seen within the periventricular white matter, likely representing chronic small vessel ischemic disease. There is no definite sign of acute or old infarction. No intracranial hemorrhage is evident. No definite mass lesion is seen on this noncontrast examination. There is no midline shift or other form of herniation. No hydrocephalus is seen. There is cavum septum pellucidum and cavum vergae, normal variants No fracture is identified. The orbits and the visualized paranasal sinuses appear unremarkable. The mastoid air cells appear clear. Impression: 1. Cerebral atrophy and chronic small vessel ischemic disease 2. Otherwise unremarkable noncontrast CT of the brain Electronically signed by Charles Mann 03-12-2025 4:[address] 03/12/25 20:04 Exam(s): CT RENAL W/WO Contrast IV Amt: 90 ML OPTIRAY 320 EXAM: CT Abdomen Without and With Intravenous Contrast CLINICAL HISTORY: Reason for exam: evaluate for hemorrhage/contusion. TECHNIQUE: Axial computed tomography images of the abdomen without and with intravenous contrast. CTDI is 28.14 mGy and DLP is 2723.8 mGy-cm. Automated exposure control was utilized for the study. A dose lowering technique was utilized adhering to the principles of ALARA. CONTRAST: Patient received 90 ML OPTIRAY 320 of IV contrast COMPARISON: No relevant prior studies available. FINDINGS: Lung bases: 2.6 cm left upper pole complex renal cysts. 1.7 cm right renal cysts. 3.2 cm left renal cysts. Both kidneys opacify within excrete contrast in a normal symmetric fashion. Bibasilar dependent atelectasis with trace bilateral pleural effusions. Liver: Unremarkable. No mass. Gallbladder and bile ducts: Unremarkable. No calcified stones. No ductal dilation. Pancreas: Unremarkable. No mass. No ductal dilation. Spleen: Unremarkable. No splenomegaly. Adrenals: Unremarkable. No mass. Kidneys and ureters: Unremarkable. No solid mass. No obstructing stones. No hydronephrosis. Stomach and bowel: Unremarkable. No obstruction. No mucosal thickening. Intraperitoneal space: Unremarkable. No free air. No significant fluid collection. Bones/joints: Minimally displaced left posterior 10th and 9th rib fractures. No dislocation. Soft tissues: Unremarkable. Vasculature: Unremarkable. No abdominal aortic aneurysm. Lymph nodes: Unremarkable. No enlarged lymph nodes. IMPRESSION: Trace bilateral pleural effusions Nondisplaced left posterior 9th and 10th rib fractures Bilateral renal cysts unremarkable on this exam No hydroureteronephrosis. Electronically signed by: Eren Sim MD 03/12/25 21:53 PM Medications Administered Chest X-Ray 03/12/25 15:18 XR chest 1V portable CLINICAL HISTORY: Trauma COMPARISON STUDY: None FINDINGS: Heart size and pulmonary vasculature are normal. Inspiration is sh allow. There is stranding opacity in the lung bases with partial obscuration of the diaphragm. No pneumothorax. No grossly displaced rib fracture seen. IMPRESSION: Bilateral lung base opacity could represent scarring, atelectasis, pneumonia, or pulmonary contusions. ACT 112: Negative or not required by law. Electronically signed by: Aj Lu M.D. 03/12/2025 3:59 PM Abdomen/Pelvis CT 03/12/25 15:21 EXAMINATION: CT of the abdomen and pelvis performed after the administration of IV contrast. TECHNIQUE: Helical CT images from the lung bases through the symphysis pubis were obtained with contrast. Coronal and sagittal reformatted images were generated at a workstation for further assessment. Dose reduction techniques were achieved by using automatic exposure control and/or adjustment of mA and/or kV according to patient size and/or use of iterative reconstruction technique. HISTORY: Pain postinjury. COMPARISON: None. FINDINGS: Logistics Specialist film demonstrates mild subsegmental atelectasis. Lung windows demonstrate mild bibasilar subsegmental atelectasis. Soft tissue windows demonstrate moderate calcified atherosclerotic changes coronary vasculature. Trace left effusion. Hypodensities bilateral kidneys likely representing benign cysts. Additional predominantly hypodensity of the superior left renal pole with dependent hyperdensities likely representing hemorrhagic cyst. Mild bilateral nonspecific perinephric fat stranding. Uncomplicated 5 mm nonobstructing right renal calculus. Likely urinary bladder diverticula. Uncomplicated large bowel diverticulosis. Appendix is not identified. No secondary findings of appendiceal disease. Small uncomplicated fat-containing umbilical and inguinal hernias. Remaining solid and hollow organs of the abdomen and pelvis are within normal limits. No free air or free fluid. Bone windows demonstrate essentially nondisplaced posterior left included 8 through 11th rib fractures. Multilevel degenerative changes of the spine. No additional appreciated acute fractures. IMPRESSION: 1. Minimally displaced posterior included left 8th through 11th rib fractures with associated subsegmental atelectasis and trace effusion. CT chest would be helpful for further characterization. 2. Nonspecific bilateral perinephric fat stranding with uncomplicated nephrolithiasis and likely benign cysts. Additional fluid/fluid level superior left renal pole likely representing a hemorrhagic cyst. If old studies exist recommend making them available for comparison purposes. Otherwise recommend nonemergent follow-up ultrasound. Please see above for details. Electronically signed by Xavi Parker 03-12-2025 5:[address] 03/12/25 15:21 Clinical history: Injury Technique: Axial computed tomography images were obtained of the cervical spine without intravenous contrast. Sagittal and coronal reconstructions were obtained Findings: No definite acute fracture is identified. There is well corticated fragmentation of the tip of the dens that could be due to old injury. No listhesis is seen. No focal osseous lesion is evident. There is atlantoaxial osteoarthritis At C2-3, there is a mild disc bulge. There is no spinal stenosis. The neural foramen are patent At C3-4, there is a disc bulge without spinal stenosis. There is bilateral neural foramen narrowing that may affect the exiting C4 nerve roots At C4-5, there is a mild disc bulge without spinal stenosis. There is right neural foramen narrowing that may affect the right C5 nerve root At C5-6, there is a disc bulge without spinal stenosis. There is bilateral neural foramen narrowing that may affect the exiting C6 nerve roots At C6-7, there is a disc bulge. There is no spinal stenosis. The neural foramen are patent At C7-T1, there is a mild disc bulge. There is no spinal stenosis. The neural foramen are patent The lung apices appear clear. The visualized soft tissues of the neck appear unremarkable. No foreign body is seen Impression: 1. No definite acute cervical spine fracture 2. Fragmentation of the tip of the dens that could be due to old injury 3. Bilateral C3-4, right C4-5, and bilateral C5-6 neural foramen narrowing, which may affect the exiting nerve roots Electronically signed by Charles Mann 03-12-2025 6:[address] 03/12/25 15:21 Clinical history: Injury Technique: Axial computed tomography images were obtained of the chest after the administration of intravenous contrast Findings: There is bilateral lung base atelectasis. There is no pleural effusion or pneumothorax. There is no sign of pulmonary fibrosis or other diffuse interstitial process. No endobronchial lesion is seen There is no mediastinal, hilar, or axillary adenopathy. The thoracic aorta appears unremarkable with no sign of aneurysm or dissection. There is no pericardial effusion. There is coronary atherosclerosis There is a 6 cm right renal calculus. There is a 2.3 cm mixed low attenuation and high attenuation lesion in the upper left kidney. There are acute mildly displaced fractures of the left posterior seventh, eighth, ninth, and 10th ribs Impression: 1. Acute fractures of the left seventh through 10th ribs 2. No pneumothorax 3. Bilateral lung base atelectasis 4. Complex left renal lesion that may represent a proteinaceous or hemorrhagic cyst but is indeterminate in nature. A follow-up dedicated renal protocol abdominal CT or MRI could be obtained ACT 112: Positive. There are findings on this exam that require communication between the performing entity and the patient following Patient Test Result Information Act ([place] ACT 112) guidelines. Electronically signed by Charles Mann 03-12-2025 5:[address] 03/12/25 15:21 Clinical History: Fall Technique: Axial computed tomography images were obtained of the brain without intravenous contrast. Findings: There is diffuse cerebral atrophy, within expected limits for the patient's age. Areas of decreased attenuation are seen within the periventricular white matter, likely representing chronic small vessel ischemic disease. There is no definite sign of acute or old infarction. No intracranial hemorrhage is evident. No definite mass lesion is seen on this noncontrast examination. There is no midline shift or other form of herniation. No hydrocephalus is seen. There is cavum septum pellucidum and cavum vergae, normal variants No fracture is identified. The orbits and the visualized paranasal sinuses appear unremarkable. The mastoid air cells appear clear. Impression: 1. Cerebral atrophy and chronic small vessel ischemic disease 2. Otherwise unremarkable noncontrast CT of the brain Electronically signed by Charles Mann 03-12-2025 4:[address] 03/12/25 20:04 Exam(s): CT RENAL W/WO Contrast IV Amt: 90 ML OPTIRAY 320 EXAM: CT Abdomen Without and With Intravenous Contrast CLINICAL HISTORY: Reason for exam: evaluate for hemorrhage/contusion. TECHNIQUE: Axial computed tomography images of the abdomen without and with intravenous contrast. CTDI is 28.14 mGy and DLP is 2723.8 mGy-cm. Automated exposure control was utilized for the study. A dose lowering technique was utilized adhering to the principles of ALARA. CONTRAST: Patient received 90 ML OPTIRAY 320 of IV contrast COMPARISON: No relevant prior studies available. FINDINGS: Lung bases: 2.6 cm left upper pole complex renal cysts. 1.7 cm right renal cysts. 3.2 cm left renal cysts. Both kidneys opacify within excrete contrast in a normal symmetric fashion. Bibasilar dependent atelectasis with trace bilateral pleural effusions. Liver: Unremarkable. No mass. Gallbladder and bile ducts: Unremarkable. No calcified stones. No ductal dilation. Pancreas: Unremarkable. No mass. No ductal dilation. Spleen: Unremarkable. No splenomegaly. Adrenals: Unremarkable. No mass. Kidneys and ureters: Unremarkable. No solid mass. No obstructing stones. No hydronephrosis. Stomach and bowel: Unremarkable. No obstruction. No mucosal thickening. Intraperitoneal space: Unremarkable. No free air. No significant fluid collection. Bones/joints: Minimally displaced left posterior 10th and 9th rib fractures. No dislocation. Soft tissues: Unremarkable. Vasculature: Unremarkable. No abdominal aortic aneurysm. Lymph nodes: Unremarkable. No enlarged lymph nodes. IMPRESSION: Trace bilateral pleural effusions Nondisplaced left posterior 9th and 10th rib fractures Bilateral renal cysts unremarkable on this exam No hydroureteronephrosis. Electronically signed by: Eren Sim MD 03/12/25 21:53 PM Coding Level of Care Code 25848 CRITICAL CARE 1ST 30-74M Diagnoses Fall from standing W19.XXXA Encounter type: initial encounter Ribs, multiple fractures S22.42XA Encounter type: initial encounter Fracture type: closed Laterality: left Essential tremor G25.[address] scan, cervical spine R93.7 Acute pain R52 ELAINE (obstructive sleep apnea) G47.33 (1) Fall from standing Encounter type: initial encounter Qualified Code(s): W19.XXXA - Unspecified fall, initial encounter (2) Ribs, multiple fractures Encounter type: initial encounter Fracture type: closed Laterality: left Qualified Code(s): S22.42XA - Multiple fractures of ribs, left side, initial encounter for closed fracture
[2025-03-12] MEDS: REMOVE LIDODERM PATCH SCH (22:08)
[2025-03-12] MEDS: NICOTINE 14 MG/24 HR PATCH TD ONE (22:24)
--- NOTE | 2025-03-12 22:24 | XRay Report ---
Exam(s): XR LEFT SHOULDER, 2+ views EXAM: XR Left Shoulder Complete, 2 or More Views CLINICAL HISTORY: Reason for exam: L shoulder pain post fall. TECHNIQUE: Two or more views of the left shoulder. COMPARISON: No relevant prior studies available. FINDINGS: Bones/joints: Unremarkable. No acute fracture. No dislocation. Soft tissues: Unremarkable. IMPRESSION: Normal left shoulder x-rays. Electronically signed by: Eren Sim MD 03/12/25 22:23 PM
--- NOTE | 2025-03-12 22:27 | XRay Report ---
Exam(s): XR LEFT HUMERUS, 2+ views EXAM: XR Left Humerus, 2 or More Views CLINICAL HISTORY: Reason for exam: L arm pain post fall. TECHNIQUE: Frontal and lateral views of the left humerus. COMPARISON: No relevant prior studies available. FINDINGS: Bones/joints: Unremarkable. No acute fracture. No dislocation. Soft tissues: Unremarkable. IMPRESSION: Normal left humerus x-rays. Electronically signed by: Eren Sim MD 03/12/25 22:26 PM
[2025-03-12] MEDS: ONDANSETRON INJ 2 MG/ML 2 ML VIAL IV PRN (22:39)
[2025-03-12] MEDS: METHOCARBAMOL 500 MG TABLET PO PRN (22:51)
--- NOTE | 2025-03-13 03:53 | XRay Report ---
EXAM: XR orbits for MRI CLINICAL HISTORY: Screening for foreign body for MRI TECHNIQUE: X-ray facial bones, 3 views: OM (occipitomental), OF (occipitofrontal), and lateral projections. COMPARISON: None. FINDINGS: Facial bones: No acute fracture is identified. The mandible appears intact. The visualized temporomandibular joints appear grossly normal. The nasal bone appears intact. The upper cervical spine appears unremarkable. Sinuses: The frontal, ethmoid, sphenoid, and maxillary sinuses are clear. There is no evidence of sinusitis or mucosal thickening. Orbits: The bony margins of the orbits are normal. No fractures or abnormal bone formation are seen. No intraocular/intraorbital metallic or radiodense foreign body seen. Nasal Cavity: The nasal septum is central. Bilateral prominent inferior nasal turbinates are present. Mastoid Air Cells: The mastoid air cells are clear. There is no evidence of mastoiditis. Soft Tissues: No abnormal masses, swelling, or calcifications are identified. IMPRESSION: No radiographic evidence of acute fracture or dislocation. No intraocular/intraorbital metallic or radiodense foreign body seen. Disclaimer: A subtle bone abnormality or fracture may not be readily apparent on X-rays, thus clinical correlation and further imaging including follow-up CT, MRI, or follow-up X-rays are advised as needed. Electronically signed by Tam Kim 03-13-2025 03:53 AM
[2025-03-13 04:43] LABS: Hematocrit (blood only) 44.7 % (42.0-52.0); Hemoglobin 15.3 g/dl (14.0-18.0); Immature Granulocytes # (auto) 0.03 K/uL (0.01-0.20); Immature Granulocytes % (auto) 0.4 %; Mean Corpuscular Hemoglobin 33.8 pg (25.0-34.0); Mean Corpuscular Volume 98.7 fL (80.0-100.0); Platelet Count 205 K/uL (130-400); RDW Standard Deviation 47.4 fL (36.4-46.3); Red Blood Count 4.53 M/uL (4.70-6.10); White Blood Count 7.33 K/ul (4.8-10.8)
[2025-03-13 05:19] LABS: Anion Gap 7.0 (3-11); Blood Urea Nitrogen 17.0 mg/dl (6-23); Calcium 9.0 mg/dl (8.6-10.3); Carbon Dioxide 25.0 mmol/L (21-32); Chloride 104.0 mmol/L (98-107); Creatinine Clr Calc Pharmacy 83.3 ml/min; Glucose 103.0 mg/dl (70-99(Fasting)); Potassium 3.8 mmol/L (3.5-5.1); Sodium 136.0 mmol/L (136-145)
--- NOTE | 2025-03-13 06:18 | Magnetic Resonance Report ---
EXAM: MR cervical spine wo con CLINICAL HISTORY: fragmentation of tip of dens on cervical spine CT TECHNIQUE: Multiplanar multiecho MRI sequences of the cervical spine without contrast were obtained and submitted for diagnostic interpretation. COMPARISON: None available. FINDINGS: Vertebral Alignment: There is normal alignment of the cervical spine without evidence of fracture or subluxation. Vertebral Bodies and Intervertebral Discs: A small, well-corticated bony fragment (7 x 6 mm) with a focal defect is noted involving the posterosuperior aspect of the tip of the odontoid process of the C2 vertebra. Disc desiccation is noted involving all cervical intervertebral discs. There are degenerative changes involving the cervical spine in the form of multilevel marginal osteophytes, disc space reduction, and facetal arthrosis. [id number] analysis: C2-C3: There is no focal disc pathology, spinal canal stenosis, or neural foraminal stenosis. C3-C4: A diffuse disc bulge causes effacement of the bilateral neural foramina and indents the bilateral exiting nerve roots. C4-C5: There is no focal disc pathology, spinal canal stenosis, or neural foraminal stenosis. C5-C6: A posterior disc bulge with peridiscal osteophytes causes narrowing of the bilateral neural foramina, which impinges the bilateral exiting nerve roots. C6-C7: A posterior disc osteophyte complex causes effacement of the bilateral neural foramina and impinges the bilateral exiting nerve roots. C7-T1: There is no focal disc pathology, spinal canal stenosis, or neural foraminal stenosis. Spinal Cord and Nerve Roots: The spinal cord demonstrates normal signal intensity and caliber. There is no evidence of cord compression or intradural pathology. The nerve roots appear unremarkable bilaterally. There is no significant disc pathology. No exiting nerve root or spinal cord compression. There is normal morphology of the ligamentum flava. There is no arthropathy of the uncovertebral and zygapophyseal joints. There is no significant spinal canal or neural foraminal stenosis. Soft Tissues: The paraspinal soft tissues appear normal without evidence of abnormal signal intensity or mass lesion. IMPRESSION: A small, well-corticated bony fragment (7 x 6 mm) with a focal defect is noted involving the posterosuperior aspect of the tip of the odontoid process of the C2 vertebra without obvious adjacent marrow edema?likely an old fracture fragment. Cervical spondylosis changes as described above. Electronically signed by Tam Kim 03-13-2025 06:18 AM
--- NOTE | 2025-03-13 07:55 | XRay Report ---
EXAM: XR chest 1V portable CLINICAL HISTORY: multiple rib fractures TECHNIQUE: An X-ray image of the chest was obtained in the AP projection. COMPARISON: 03/12/2025. FINDINGS: Pulmonary Parenchyma: Unchanged mild haziness is present in the bilateral lower zones. Unchanged mild bilateral pleural effusion is present, with obscured costophrenic recesses. Heart and Mediastinum: The cardiac shadow is normal. No mediastinal widening or masses are seen. No hilar or mediastinal lymphadenopathy is present. Bony Thorax: Fractures of the left posterior 7th, 8th, 9th, and 10th ribs are seen. No pneumothorax is noted. Soft Tissues: The soft tissues overlying the chest wall are unremarkable. A small loose body is seen just above the right acromioclavicular joint. IMPRESSION: 1. Unchanged mild haziness in the bilateral lower zones. 2. Unchanged mild bilateral pleural effusion with obscured costophrenic recesses. 3. Unchanged left posterior 7th, 8th, 9th, and 10th rib fractures. 4. No significant interval changes. Electronically signed by Juan Cruz 03-13-2025 07:54 AM
--- NOTE | 2025-03-13 08:46 | XCELERA ---
[id number]
[2025-03-13] MEDS ORDERED: ASPIRIN 81 MG CHEW PO SCH (09:00)
[2025-03-13] MEDS ORDERED: NICOTINE 14 MG/24 HR PATCH TD SCH (09:00)
--- NOTE | 2025-03-13 09:23 | Orthopedic Consultation ---
Date of Service March 13, 2025 Assessment & Plan (1) Closed fracture of dens without spinal cord injury: * Case/imaging reviewed and discussed with Dr Bains * History, exam, imaging findings consistent with chronic dens fracture. No concern for acute injury on MRI * Recommend activity of the neck and upper extremities as tolerated * C-collar removed * Weight bearing status: As tolerated upper extremities * Daily treatment: Physical Therapy/ Occupational Therapy per protocol * Pain control * Disposition: TBD * Remainder care per primary team * Can follow-up with Ortho spine team as needed. Please contact with new onset neck pain or new symptoms History of Present Illness Reason for Consultation: Dens fragment Requesting Physician: . Attending Physician: Gilbert Gamble MD . Patient is a 79 y/o male with imaging findings concerning for old Dens fracture. PMH including essential tremor, PAD, HTN. Presents to hospital after a fall suffered yesterday. Per report patient tripped over a curb and landed on his left side. States he lightly hit his head but did not lose consciousness. ED workup significant for multiple left-sided rib fractures, CT C-spine demonstrates fragmentation tip of dens suspicious for old injury. Patient was admitted to hospital medicine/ICU team for observation, orthospine consulted for management recommendations regarding dens fragment. At time of exam patient sitting upright in bed, no acute distress. C-collar in place. Patient denies any neck pain, radicular pain down the arms, or tingling or numbness of upper extremities. Does not recall a specific injury but states that he very likely has injured his neck in the past. C-spine MRI obtained and reviewed this morning. Allergies Allergy/AdvReac Type Severity Reaction Status Date / Time Penicillins Allergy Unknown ? Verified 08/09/24 13:57 Sulfa (Sulfonamide Allergy Hives Verified 08/09/24 13:57 Antibiotics) Home Medications Medication Instructions Recorded Confirmed Type amlodipine 5 mg tablet (Norvasc) 5 mg PO DAILY 07/10/21 03/12/25 History celecoxib 200 mg capsule (Celebrex) 200 mg PO DAILY 07/10/21 03/12/25 History omeprazole 20 mg capsule,delayed 20 mg PO DAILY 07/10/21 03/12/25 History release cholecalciferol (vitamin D3) 25 25 mcg PO DAILY 09/09/21 03/12/25 History mcg (1,000 unit) capsule aspirin 81 mg chewable tablet 81 mg PO DAILY 04/23/23 03/12/25 History atorvastatin 20 mg tablet 20 mg PO DAILY #90 tabs 01/30/25 03/12/25 Rx propranolol 20 mg tablet 0 mg PO BID 03/12/25 03/12/25 History Past Med/Surg History Problem List (Updated 03/13/25 @ 12:26 by Brendan Bains MD) Closed fracture of dens without spinal cord injury ELAINE (obstructive sleep apnea) Acute pain Abnormal CT scan, cervical spine Abrasion of forehead (Acute) Fall from standing (Acute) Ribs, multiple fractures (Acute) Chest pain Essential tremor PAD (peripheral artery disease) Medical History GERD (gastroesophageal reflux disease) Hypertension Esotropia Amblyopia Photophobia Hyperopia Unspecified disorder of eyelid Partially resolved traumatic cataract, right eye Tobacco user Pseudophakia Osteoarthritis of knees, bilateral Sleep-related breathing disorder Severe sleep apnea Elevated C-reactive protein Dysuria Unilateral primary osteoarthritis, left knee Urinary frequency Surgical History S/P carpal tunnel release S/P vasectomy S/P nasal polypectomy S/P arthroscopy of right knee Family History Family/Other Hypertension Diabetes Cancer Other Bleeding disorder Social History Smoking Status: Current every day smoker Tobacco Type: Cigarettes and Smokeless Tobacco (Dip or Chew) packs per day: 0.25; Second Hand Exposure: No; Do You Dip or Chew Tobacco: Yes; Hx Alcohol Use: No Hx Substance Use: No Preferred Language: Danish Communication Ability: Effective Workday Senior Associate Required: No Beliefs That Will Affect Care: None marital status: Current Living Situation: Spouse current occupational status: employed current occupation: [employer] Feels Safe at Home: Yes Assistive Devices: BiPap, Denture - Upper, Glasses and Hearing Aid - Bilateral Review of Systems All systems reviewed & are unremarkable except as noted in HPI & below. Physical Exam . * General: Alert and oriented, no acute distress * Constitutional: well-developed, well-nourished. * Respiratory: Normal respiratory effort, no distress * Gastrointestinal: No tenderness to palpation, no rigidity or guarding. * Skin: No rash or lesion. * Neurologic: Grossly normal * Musculoskeletal: C-collar in place, removed for exam. Cervical spine region without obvious deformity or overlying skin changes. No tenderness midline C- spine or paraspinals. Otherwise no tenderness b/l UE. Neck ROM with no pain. AROM b/l shoulder flexion, elbow flexion/extension, wrist flexion/extension intact. ROM left shoulder limited secondary to rib fractures. Sensation intact radial/median/ulnar nerve distributions bilaterally. Brisk capillary refill. Results & Data Results & Data Laboratory Results . Diagnostic Findings . Chest X-Ray 03/12/25 15:18 XR chest 1V portable CLINICAL HISTORY: Trauma COMPARISON STUDY: None FINDINGS: Heart size and pulmonary vasculature are normal. Inspiration is shallow. There is stranding opacity in the lung bases with partial obscuration of the diaphragm. No pneumothorax. No grossly displaced rib fracture seen. IMPRESSION: Bilateral lung base opacity could represent scarring, atelectasis, pneumonia, or pulmonary contusions. ACT 112: Negative or not required by law. Electronically signed by: Aj Lu M.D. 03/12/2025 3:59 PM Abdomen/Pelvis CT 03/12/25 15:21 EXAMINATION: CT of the abdomen and pelvis performed after the administration of IV contrast. TECHNIQUE: Helical CT images from the lung bases through the symphysis pubis were obtained with contrast. Coronal and sagittal reformatted images were generated at a workstation for further assessment. Dose reduction techniques were achieved by using automatic exposure control and/or adjustment of mA and/or kV according to patient size and/or use of iterative reconstruction technique. HISTORY: Pain postinjury. COMPARISON: None. FINDINGS: Environment Friendly Landscape Designer film demonstrates mild subsegmental atelectasis. Lung windows demonstrate mild bibasilar subsegmental atelectasis. Soft tissue windows demonstrate moderate calcified atherosclerotic changes coronary vasculature. Trace left effusion. Hypodensities bilateral kidneys likely representing benign cysts. Additional predominantly hypodensity of the superior left renal pole with dependent hyperdensities likely representing hemorrhagic cyst. Mild bilateral nonspecific perinephric fat stranding. Uncomplicated 5 mm nonobstructing right renal calculus. Likely urinary bladder diverticula. Uncomplicated large bowel diverticulosis. Appendix is not identified. No secondary findings of appendiceal disease. Small uncomplicated fat-containing umbilical and inguinal hernias. Remaining solid and hollow organs of the abdomen and pelvis are within normal limits. No free air or free fluid. Bone windows demonstrate essentially nondisplaced posterior left included 8 through 11th rib fractures. Multilevel degenerative changes of the spine. No additional appreciated acute fractures. IMPRESSION: 1. Minimally displaced posterior included left 8th through 11th rib fractures with associated subsegmental atelectasis and trace effusion. CT chest would be helpful for further characterization. 2. Nonspecific bilateral perinephric fat stranding with uncomplicated nephrolithiasis and likely benign cysts. Additional fluid/fluid level superior left renal pole likely representing a hemorrhagic cyst. If old studies exist recommend making them available for comparison purposes. Otherwise recommend nonemergent follow-up ultrasound. Please see above for details. Electronically signed by Xavi Parker 03-12-2025 5:[address] 03/12/25 15:21 Clinical history: Injury Technique: Axial computed tomography images were obtained of the cervical spine without intravenous contrast. Sagittal and coronal reconstructions were obtained Findings: No definite acute fracture is identified. There is well corticated fragmentation of the tip of the dens that could be due to old injury. No listhesis is seen. No focal osseous lesion is evident. There is atlantoaxial osteoarthritis At C2-3, there is a mild disc bulge. There is no spinal stenosis. The neural foramen are patent At C3-4, there is a disc bulge without spinal stenosis. There is bilateral neural foramen narrowing that may affect the exiting C4 nerve roots At C4-5, there is a mild disc bulge without spinal stenosis. There is right neural foramen narrowing that may affect the right C5 nerve root At C5-6, there is a disc bulge without spinal stenosis. There is bilateral neural foramen narrowing that may affect the exiting C6 nerve roots At C6-7, there is a disc bulge. There is no spinal stenosis. The neural foramen are patent At C7-T1, there is a mild disc bulge. There is no spinal stenosis. The neural foramen are patent The lung apices appear clear. The visualized soft tissues of the neck appear unremarkable. No foreign body is seen Impression: 1. No definite acute cervical spine fracture 2. Fragmentation of the tip of the dens that could be due to old injury 3. Bilateral C3-4, right C4-5, and bilateral C5-6 neural foramen narrowing, which may affect the exiting nerve roots Electronically signed by Charles Mann 03-12-2025 6:[address] 03/12/25 15:21 Clinical history: Injury Technique: Axial computed tomography images were obtained of the chest after the administration of intravenous contrast Findings: There is bilateral lung base atelectasis. There is no pleural effusion or pneumothorax. There is no sign of pulmonary fibrosis or other diffuse interstitial process. No endobronchial lesion is seen There is no mediastinal, hilar, or axillary adenopathy. The thoracic aorta appears unremarkable with no sign of aneurysm or dissection. There is no pericardial effusion. There is coronary atherosclerosis There is a 6 cm right renal calculus. There is a 2.3 cm mixed low attenuation and high attenuation lesion in the upper left kidney. There are acute mildly displaced fractures of the left posterior seventh, eighth, ninth, and 10th ribs Impression: 1. Acute fractures of the left seventh through 10th ribs 2. No pneumothorax 3. Bilateral lung base atelectasis 4. Complex left renal lesion that may represent a proteinaceous or hemorrhagic cyst but is indeterminate in nature. A follow-up dedicated renal protocol abdominal CT or MRI could be obtained ACT 112: Positive. There are findings on this exam that require communication between the performing entity and the patient following Patient Test Result Information Act ([place] ACT 112) guidelines. Electronically signed by Charles Mann 03-12-2025 5:[address] 03/12/25 15:21 Clinical History: Fall Technique: Axial computed tomography images were obtained of the brain without intravenous contrast. Findings: There is diffuse cerebral atrophy, within expected limits for the patient's age. Areas of decreased attenuation are seen within the periventricular white matter, likely representing chronic small vessel ischemic disease. There is no definite sign of acute or old infarction. No intracranial hemorrhage is evident. No definite mass lesion is seen on this noncontrast examination. There is no midline shift or other form of herniation. No hydrocephalus is seen. There is cavum septum pellucidum and cavum vergae, normal variants No fracture is identified. The orbits and the visualized paranasal sinuses appear unremarkable. The mastoid air cells appear clear. Impression: 1. Cerebral atrophy and chronic small vessel ischemic disease 2. Otherwise unremarkable noncontrast CT of the brain Electronically signed by Charles Mann 03-12-2025 4:[address] 03/12/25 20:04 Exam(s): CT RENAL W/WO Contrast IV Amt: 90 ML OPTIRAY 320 EXAM: CT Abdomen Without and With Intravenous Contrast CLINICAL HISTORY: Reason for exam: evaluate for hemorrhage/contusion. TECHNIQUE: Axial computed tomography images of the abdomen without and with intravenous contrast. CTDI is 28.14 mGy and DLP is 2723.8 mGy-cm. Automated exposure control was utilized for the study. A dose lowering technique was utilized adhering to the principles of ALARA. CONTRAST: Patient received 90 ML OPTIRAY 320 of IV contrast COMPARISON: No relevant prior studies available. FINDINGS: Lung bases: 2.6 cm left upper pole complex renal cysts. 1.7 cm right renal cysts. 3.2 cm left renal cysts. Both kidneys opacify within excrete contrast in a normal symmetric fashion. Bibasilar dependent atelectasis with trace bilateral pleural effusions. Liver: Unremarkable. No mass. Gallbladder and bile ducts: Unremarkable. No calcified stones. No ductal dilation. Pancreas: Unremarkable. No mass. No ductal dilation. Spleen: Unremarkable. No splenomegaly. Adrenals: Unremarkable. No mass. Kidneys and ureters: Unremarkable. No solid mass. No obstructing stones. No hydronephrosis. Stomach and bowel: Unremarkable. No obstruction. No mucosal thickening. Intraperitoneal space: Unremarkable. No free air. No significant fluid collection. Bones/joints: Minimally displaced left posterior 10th and 9th rib fractures. No dislocation. Soft tissues: Unremarkable. Vasculature: Unremarkable. No abdominal aortic aneurysm. Lymph nodes: Unremarkable. No enlarged lymph nodes. IMPRESSION: Trace bilateral pleural effusions Nondisplaced left posterior 9th and 10th rib fractures Bilateral renal cysts unremarkable on this exam No hydroureteronephrosis. Electronically signed by: Eren Sim MD 03/12/25 21:53 PM Humerus X-Ray 03/12/25 20:16 Exam(s): XR LEFT HUMERUS, 2+ views EXAM: XR Left Humerus, 2 or More Views CLINICAL HISTORY: Reason for exam: L arm pain post fall. TECHNIQUE: Frontal and lateral views of the left humerus. COMPARISON: No relevant prior studies available. FINDINGS: Bones/joints: Unremarkable. No acute fracture. No dislocation. Soft tissues: Unremarkable. IMPRESSION: Normal left humerus x-rays. Electronically signed by: Eren Sim MD 03/12/25 22:26 PM Shoulder X-Ray 03/12/25 20:16 Exam(s): XR LEFT SHOULDER, 2+ views EXAM: XR Left Shoulder Complete, 2 or More Views CLINICAL HISTORY: Reason for exam: L shoulder pain post fall. TECHNIQUE: Two or more views of the left shoulder. COMPARISON: No relevant prior studies available. FINDINGS: Bones/joints: Unremarkable. No acute fracture. No dislocation. Soft tissues: Unremarkable. IMPRESSION: Normal left shoulder x-rays. Electronically signed by: Eren Sim MD 03/12/25 22:23 PM Orbit X-Ray 03/13/25 01:07 EXAM: XR orbits for MRI CLINICAL HISTORY: Screening for foreign body for MRI TECHNIQUE: X-ray facial bones, 3 views: OM (occipitomental), OF (occipitofrontal), and lateral projections. COMPARISON: None. FINDINGS: Facial bones: No acute fracture is identified. The mandible appears intact. The visualized temporomandibular joints appear grossly normal. The nasal bone appears intact. The upper cervical spine appears unremarkable. Sinuses: The frontal, ethmoid, sphenoid, and maxillary sinuses are clear. There is no evidence of sinusitis or mucosal thickening. Orbits: The bony margins of the orbits are normal. No fractures or abnormal bone formation are seen. No intraocular/intraorbital metallic or radiodense foreign body seen. Nasal Cavity: The nasal septum is central. Bilateral prominent inferior nasal turbinates are present. Mastoid Air Cells: The mastoid air cells are clear. There is no evidence of mastoiditis. Soft Tissues: No abnormal masses, swelling, or calcifications are identified. IMPRESSION: No radiographic evidence of acute fracture or dislocation. No intraocular/intraorbital metallic or radiodense foreign body seen. Disclaimer: A subtle bone abnormality or fracture may not be readily apparent on X-rays, thus clinical correlation and further imaging including follow-up CT, MRI, or follow-up X-rays are advised as needed. Electronically signed by Tam Kim 03-13-2025 03:53 AM Cervical Spine MRI 03/13/25 08:00 EXAM: MR cervical spine wo con CLINICAL HISTORY: fragmentation of tip of dens on cervical spine CT TECHNIQUE: Multiplanar multiecho MRI sequences of the cervical spine without contrast were obtained and submitted for diagnostic interpretation. COMPARISON: None available. FINDINGS: Vertebral Alignment: There is normal alignment of the cervical spine without evidence of fracture or subluxation. Vertebral Bodies and Intervertebral Discs: A small, well-corticated bony fragment (7 x 6 mm) with a focal defect is noted involving the posterosuperior aspect of the tip of the odontoid process of the C2 vertebra. Disc desiccation is noted involving all cervical intervertebral discs. There are degenerative changes involving the cervical spine in the form of multilevel marginal osteophytes, disc space reduction, and facetal arthrosis. [id number] analysis: C2-C3: There is no focal disc pathology, spinal canal stenosis, or neural foraminal stenosis. C3-C4: A diffuse disc bulge causes effacement of the bilateral neural foramina and indents the bilateral exiting nerve roots. C4-C5: There is no focal disc pathology, spinal canal stenosis, or neural foraminal stenosis. C5-C6: A posterior disc bulge with peridiscal osteophytes causes narrowing of the bilateral neural foramina, which impinges the bilateral exiting nerve roots. C6-C7: A posterior disc osteophyte complex causes effacement of the bilateral neural foramina and impinges the bilateral exiting nerve roots. C7-T1: There is no focal disc pathology, spinal canal stenosis, or neural foraminal stenosis. Spinal Cord and Nerve Roots: The spinal cord demonstrates normal signal intensity and caliber. There is no evidence of cord compression or intradural pathology. The nerve roots appear unremarkable bilaterally. There is no significant disc pathology. No exiting nerve root or spinal cord compression. There is normal morphology of the ligamentum flava. There is no arthropathy of the uncovertebral and zygapophyseal joints. There is no significant spinal canal or neural foraminal stenosis. Soft Tissues: The paraspinal soft tissues appear normal without evidence of abnormal signal intensity or mass lesion. IMPRESSION: A small, well-corticated bony fragment (7 x 6 mm) with a focal defect is noted involving the posterosuperior aspect of the tip of the odontoid process of the C2 vertebra without obvious adjacent marrow edema?likely an old fracture fragment. Cervical spondylosis changes as described above. Electronically signed by Tam Kim 03-13-2025 06:18 AM Chest X-Ray 03/13/25 09:00 EXAM: XR chest 1V portable CLINICAL HISTORY: multiple rib fractures TECHNIQUE: An X-ray image of the chest was obtained in the AP projection. COMPARISON: 03/12/2025. FINDINGS: Pulmonary Parenchyma: Unchanged mild haziness is present in the bilateral lower zones. Unchanged mild bilateral pleural effusion is present, with obscured costophrenic recesses. Heart and Mediastinum: The cardiac shadow is normal. No mediastinal widening or masses are seen. No hilar or mediastinal lymphadenopathy is present. Bony Thorax: Fractures of the left posterior 7th, 8th, 9th, and 10th ribs are seen. No pneumothorax is noted. Soft Tissues: The soft tissues overlying the chest wall are unremarkable. A small loose body is seen just above the right acromioclavicular joint. IMPRESSION: 1. Unchanged mild haziness in the bilateral lower zones. 2. Unchanged mild bilateral pleural effusion with obscured costophrenic recesses. 3. Unchanged left posterior 7th, 8th, 9th, and 10th rib fractures. 4. No significant interval changes. Electronically signed by Juan Cruz 03-13-2025 07:54 AM PG Care Time/CCT Total # of Minutes Spent Total Time Spent with Patient: Total time spent is greater than 50% in coordination of care (as documented) at patient's floor/unit and/or counseling patient: [place] [address] IN/OBS CONSULT LVL 3,45M Patient Type New Medical Decision Making Straight Forward Diagnoses Closed odontoid fracture without spinal cord injury, sequela S12.100S Encounter type: sequela (1) Closed fracture of dens without spinal cord injury Encounter type: sequela Qualified Code(s): S12.100S - Unspecified displaced fracture of second cervical vertebra, sequela
[2025-03-13] MEDS: ATORVASTATIN 20 MG TAB PO SCH (09:25)
[2025-03-13] MEDS: REMOVE NICODERM PATCH SCH (09:25)
[2025-03-13] MEDS: REMOVE LIDODERM PATCH SCH (09:26)
[2025-03-13] MEDS: DOCUSATE SODIUM/SENNA 50/8.6MG TAB PO SCH (09:29)
[2025-03-13] MEDS: NICOTINE 14 MG/24 HR PATCH TD SCH (11:01)
[2025-03-13] MEDS: ENOXAPARIN INJ 40 MG/0.4 ML SYR SQ SCH (11:01)
[2025-03-13] MEDS: LIDOCAINE 5% 1 PATCH TD SCH (11:52)
--- NOTE | 2025-03-13 11:52 | Electrocardiogram Report ---
Test Reason : Blood Pressure : */* mmHG Vent. Rate : 71 BPM Atrial Rate : 71 BPM P-R Int : 200 ms QRS Dur : 88 ms QT Int : 406 ms P-R-T Axes : 50 18 15 degrees QTcB Int : 441 ms Sinus rhythm with occasional Premature ventricular complexes Otherwise normal ECG When compared with ECG of 03-Aug-2023 13:52, (unconfirmed) Premature ventricular complexes are now Present Confirmed by Finesse Estrada ([id number]) on 03/13/2025 11:51:41 AM Referred By: REFERRED SELF Confirmed By: Finesse Estrada
--- NOTE | 2025-03-13 13:02 | Surgery Progress Note ---
Date of Service March 13, 2025 Assessment & Plan (1) Ribs, multiple fractures: Plan: following for multiple left sided rib fractures s/p fall cxr confirms rib fxs. no pneumothorax on some supplemental O2. recommend ongoing pain control encourage pulmonary toilet, IS no surgical intervention required. we will sign off but please call with any questions/concerns Admission and Anticipated Discharge Date Admission Date: March 12, 2025 Supervising Physician Co-Signing Physician Notes I have seen and examined this pt this am with the surgical PA. I agree with this plan. Subjective Patient feeling better. Pain present but manageable on current regimen. No new SOB or symptoms/concerns Physical Exam Physical Exam: awake/alert, sitting up in chair on a couple L nasal cannula Respiratory: on supplemental O2 Results & Data Vital Signs (Past 12 Hours) Vital Signs Temp Pulse Resp BP Pulse Ox Pulse Ox Pulse Ox 03/13/25 12:31 98.4 F 03/13/25 12:27 91 87 L 03/13/25 12:20 88 18 116/68 94 03/13/25 11:27 92 03/13/25 11:00 94 H 22 127/65 90 03/13/25 10:03 83 16 94 03/13/25 10:00 138/63 03/13/25 10:00 138/63 03/13/25 09:48 85 15 94 03/13/25 09:00 84 18 91 03/13/25 09:00 127/59 L 03/13/25 08:12 78 18 90 03/13/25 08:01 139/72 03/13/25 08:01 139/72 03/13/25 08:00 03/13/25 08:00 64 03/13/25 08:00 98.8 F 03/13/25 07:54 80 19 93 03/13/25 07:15 66 15 93 03/13/25 06:00 134/72 03/13/25 06:00 134/72 03/13/25 06:00 134/72 03/13/25 06:00 69 16 94 03/13/25 05:42 137/73 03/13/25 04:12 66 13 96 03/13/25 04:03 69 15 95 03/13/25 04:00 131/72 03/13/25 04:00 131/72 03/13/25 04:00 98.2 F 03/13/25 03:51 70 17 91 03/13/25 03:00 73 15 95 03/13/25 03:00 137/76 03/13/25 03:00 137/76 03/13/25 02:06 74 17 90 03/13/25 01:00 79 21 94 O2 Del Method O2 Flow Rate O2 Flow Rate O2 Flow Rate 03/13/25 12:31 03/13/25 12:27 2 0 03/13/25 12:20 03/13/25 11:27 03/13/25 11:00 Nasal Cannula 2 03/13/25 10:03 03/13/25 10:00 03/13/25 10:00 03/13/25 09:48 03/13/25 09:00 03/13/25 09:00 03/13/25 08:12 03/13/25 08:01 03/13/25 08:01 03/13/25 08:00 Nasal Cannula 1 03/13/25 08:00 03/13/25 08:00 03/13/25 07:54 03/13/25 07:15 Nasal Cannula 1 03/13/25 06:00 03/13/25 06:00 03/13/25 06:00 03/13/25 06:00 03/13/25 05:42 03/13/25 04:12 03/13/25 04:03 03/13/25 04:00 03/13/25 04:00 03/13/25 04:00 03/13/25 03:51 03/13/25 03:00 03/13/25 03:00 03/13/25 03:00 03/13/25 02:06 03/13/25 01:00 PG Care Time/CCT Total # of Minutes Spent Total Time Spent with Patient: Total time spent is greater than 50% in coordination of care (as documented) at patient's floor/unit and/or counseling patient: Coding Level of Care Code 73064 SUB INP/OBS CARE 06/10MIN Diagnoses Ribs, multiple fractures S22.42XA Encounter type: initial encounter Fracture type: closed Laterality: left (1) Ribs, multiple fractures Encounter type: initial encounter Fracture type: closed Laterality: left Qualified Code(s): S22.42XA - Multiple fractures of ribs, left side, initial encounter for closed fracture
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
--- NOTE | 2025-03-13 16:06 | Critical Care Progress Note ---
Date of Service March 13, 2025 Assessment & Plan (1) Fall from standing: (2) Ribs, multiple fractures: Plan: * No associated pneumothorax * No evidence of lung contusion (3) Hypoxemia: Plan: * Probably multifactorial * Atelectasis noted on chest CT * Hypoventilation secondary to splinting * Titrate Oxygen as tolerated. Tolerate SpO2 88-92% (4) Abnormal CT scan, cervical spine: (5) ELAINE (obstructive sleep apnea): Plan: * Continue BiPAP during sleep as tolerated. Admission and Anticipated Discharge Date Admission Date: March 12, 2025 Subjective The patient is a very pleasant 79-year-old gentleman who presented to the ED after tripping over a curb in a parking lot and sustaining a ground-level fall onto his left side. He reported immediate pain in his left posterior ribs and left arm, and was unable to get up due to the severity of his pain. He noted that he grazed his left forehead on the ground but denied any significant head strike, loss of consciousness, or neck pain. He did not experience dizziness, lightheadedness, chest pain, shortness of breath, fever, chills, nausea, vomiting, abdominal pain, or changes in urinary or bowel habits. He described his pain as 4/10 at rest and up to 15/10 with movement, similar to prior right- sided rib fractures he sustained in the 1980s. Imaging included a CT head (negative for acute findings), CT cervical spine (no acute fracture, but noted well-corticated fragmentation of the dens likely related to an old injury, with degenerative changes and atlantoaxial arthritis), and CT chest (minimally displaced fractures of the left [id number] ribs, bilateral atelectasis, no pneumothorax or hemothorax). CT abdomen/pelvis revealed bilateral perinephric stranding and cysts, with a complex left renal cyst, but no acute traumatic findings. The patient was admitted to the ICU for pain control and close monitoring of pulmonary and hemodynamic status due to multiple left-sided rib fractures and increased risk for atelectasis, pneumonia, and hypoxia. He was started on scheduled acetaminophen, with morphine and oxycodone as needed for pain, and incentive spirometry was initiated. Orthopedic spine consultation recommended a cervical collar and MRI to further evaluate the dens finding. Physical and occupational therapy consultations were requested for safe mobilization. His past medical history included essential tremor, PAD, HTN, HLD, GERD, ELAINE, and bilateral knee replacements. He did not take anticoagulation but was on daily low-dose aspirin. The patient underwent cervical MRI and was cleared by Orthopedics to remove the collar. He continues desaturating to SpO2 in the high 80s on room-air. Otherwise he denies any dyspnea at rest. Review of Systems Review of Systems: All systems reviewed & are unremarkable except as noted in HPI & below Physical Exam Physical Exam: General: In no acute distress, using Oxygenvia nasal cannula. Skin: Warm and dry to touch. Contusion to left side of forehead. Eyes: Anicteric.Noconjunctival hyperemia or exudates.No periorbital edema. ENT: No oral thrush. No oropharyngeal erythema or exudates. Modified-Mallampati 3 (Hard and soft palate seen). Dentures/bridge in-place. Neck: No palpable masses or adenopathy. Respiratory: Diffusely decreased breath sounds, no wheezing or crackles. No use of accessory muscles and no prolonged exhalation. Tenderness over left upper rib-cage posteriorly. Cardiac: Distant sounds, regular rhythm, no murmurs, no gallops, no rubs; could not appreciate JV pulse elevation. GI: Soft, nontender. Extremities No clubbing,no cyanosis,no edema. Neuro: Patient was nodding while sitting up in chair when I saw him. No gross motor deficits. Seems appropriate. No facial-droop. Speech is clear. Results & Data Results & Data Vital Signs (Past 12 Hours) Vital Signs Temp Pulse Resp BP Pulse Ox Pulse Ox Pulse Ox 03/13/25 13:17 132/71 03/13/25 13:17 132/71 03/13/25 13:08 83 19 94 03/13/25 13:05 81 17 93 03/13/25 13:00 132/71 03/13/25 12:56 79 20 93 03/13/25 12:31 36.9 C 03/13/25 12:27 91 87 L 03/13/25 12:20 88 18 116/68 94 03/13/25 11:27 92 03/13/25 11:00 94 H 22 127/65 90 03/13/25 10:03 83 16 94 03/13/25 10:00 138/63 03/13/25 10:00 138/63 03/13/25 09:48 85 15 94 10/28/25 09:00 84 18 91 03/13/25 09:00 127/59 L 03/13/25 08:12 78 18 90 03/13/25 08:01 139/72 03/13/25 08:01 139/72 03/13/25 08:00 03/13/25 08:00 64 03/13/25 08:00 37.1 C 03/13/25 07:54 80 19 93 03/13/25 07:15 66 15 93 03/13/25 06:00 134/72 03/13/25 06:00 134/72 03/13/25 06:00 134/72 03/13/25 06:00 69 16 94 03/13/25 05:42 137/73 03/13/25 04:12 66 13 96 03/13/25 04:03 69 15 95 03/13/25 04:00 131/72 03/13/25 04:00 131/72 03/13/25 04:00 36.8 C O2 Del Method O2 Flow Rate O2 Flow Rate O2 Flow Rate 03/13/25 13:17 03/13/25 13:17 03/13/25 13:08 03/13/25 13:05 03/13/25 13:00 03/13/25 12:56 03/13/25 12:31 03/13/25 12:27 2 0 03/13/25 12:20 03/13/25 11:27 03/13/25 11:00 Nasal Cannula 2 03/13/25 10:03 03/13/25 10:00 03/13/25 10:00 03/13/25 09:48 03/13/25 09:00 03/13/25 09:00 03/13/25 08:12 03/13/25 08:01 03/13/25 08:01 03/13/25 08:00 Nasal Cannula 1 03/13/25 08:00 03/13/25 08:00 03/13/25 07:54 03/13/25 07:15 Nasal Cannula 1 03/13/25 06:00 03/13/25 06:00 03/13/25 06:00 03/13/25 06:00 03/13/25 05:42 03/13/25 04:12 03/13/25 04:03 03/13/25 04:00 03/13/25 04:00 03/13/25 04:00 Laboratory Results 03/13/25 03/12/25 03/12/25 04:10 22:45 21:10 WBC 7.33 RBC 4.53 L Hgb 15.3 POC Hgb Hct 44.7 POC Hct MCV 98.7 MCH 33.8 MCHC 34.2 RDW Std Deviation 47.4 H RDW Coeff of Ziggy 13.0 Plt Count 205 MPV 9.8 Immature Gran % (Auto) 0.4 Neut % (Auto) 75.5 Lymph % (Auto) 11.7 Storey % (Auto) 11.5 Eos % (Auto) 0.5 Baso % (Auto) 0.4 Neut # (Auto) 5.53 Lymph # (Auto) 0.86 L Storey # (Auto) 0.84 H Eos # (Auto) 0.04 Baso # (Auto) 0.03 Immature Gran # (Auto) 0.03 PT INR APTT PTT Ratio POC Sodium Sodium 136 POC Potassium Potassium 3.8 POC Chloride Chloride 104 Carbon Dioxide 25 POC Total CO2 Anion Gap 7 POC Anion Gap POC BUN BUN 17 Creatinine 0.80 POC Creatinine Est Cr Clr Drug Dosing 83.3 eGFR 90.02 BUN/Creatinine Ratio 21.3 H Glucose 103 H POC Glucose (other) Calcium 9.0 POC Ioniz Calcium Ye Total Bilirubin AST ALT Alkaline Phosphatase Troponin I High Sens 7.2 Total Protein Albumin Globulin Albumin/Globulin Ratio Lipase Urine Color Urine Appearance Urine pH Ur Specific [place] Urine Protein Urine Glucose (UA) Urine Ketones Urine Blood Urine Nitrite Urine Bilirubin Urine Urobilinogen Ur Leukocyte Esterase Urine WBC (Auto) Urine RBC (Auto) U Hyaline Cast (Auto) U Epithel Cells (Auto) Urine Bacteria (Auto) Urine Comment Nasal Screen MRSA (PCR) Negative Blood Type O Positive Antibody Screen NEGATIVE 03/12/25 03/12/25 03/12/25 17:24 15:53 15:35 WBC RBC Hgb POC Hgb 16.0 Hct POC Hct 47 MCV MCH MCHC RDW Std Deviation RDW Coeff of Ziggy Plt Count MPV Immature Gran % (Auto) Neut % (Auto) Lymph % (Auto) Storey % (Auto) Eos % (Auto) Baso % (Auto) Neut # (Auto) Lymph # (Auto) Storey # (Auto) Eos # (Auto) Baso # (Auto) Immature Gran # (Auto) PT 11.0 INR 1.0 APTT 24 PTT Ratio 0.9 POC Sodium 139 Sodium 138 POC Potassium 3.9 Potassium 4.1 POC Chloride 104 Chloride 105 Carbon Dioxide 29 POC Total CO2 25 Anion Gap 4 POC Anion Gap 16.0 POC BUN 22 H BUN 21 Creatinine 0.92 POC Creatinine 0.9 Est Cr Clr Drug Dosing 72.4 eGFR 84.62 BUN/Creatinine Ratio 22.8 H Glucose 107 H POC Glucose (other) 115 H Calcium 9.6 POC Ioniz Calcium Ye 1.18 Total Bilirubin 0.9 AST 22 ALT 17 Alkaline Phosphatase 89 Troponin I High Sens Total Protein 7.4 Albumin 4.2 Globulin 3.2 Albumin/Globulin Ratio 1.3 Lipase 31 Urine Color Yellow Urine Appearance Clear Urine pH 6.5 Ur Specific [place] 1.034 H Urine Protein Trace H Urine Glucose (UA) Negative Urine Ketones Negative Urine Blood 2+ H Urine Nitrite Negative Urine Bilirubin Negative Urine Urobilinogen Negative Ur Leukocyte Esterase Negative Urine WBC (Auto) 0-5 Urine RBC (Auto) >20 H U Hyaline Cast (Auto) 0-2 U Epithel Cells (Auto) 3-5 H Urine Bacteria (Auto) None Seen Urine Comment Nasal Screen MRSA (PCR) Blood Type Antibody Screen Diagnostic Findings Abdomen/Pelvis CT 03/12/25 15:21 EXAMINATION: CT of the abdomen and pelvis performed after the administration of IV contrast. TECHNIQUE: Helical CT images from the lung bases through the symphysis pubis were obtained with contrast. Coronal and sagittal reformatted images were generated at a workstation for further assessment. Dose reduction techniques were achieved by using automatic exposure control and/or adjustment of mA and/or kV according to patient size and/or use of iterative reconstruction technique. HISTORY: Pain postinjury. COMPARISON: None. FINDINGS: Systems Project Manager film demonstrates mild subsegmental atelectasis. Lung windows demonstrate mild bibasilar subsegmental atelectasis. Soft tissue windows demonstrate moderate calcified atherosclerotic changes coronary vasculature. Trace left effusion. Hypodensities bilateral kidneys likely representing benign cysts. Additional predominantly hypodensity of the superior left renal pole with dependent hyperdensities likely representing hemorrhagic cyst. Mild bilateral nonspecific perinephric fat stranding. Uncomplicated 5 mm nonobstructing right renal calculus. Likely urinary bladder diverticula. Uncomplicated large bowel diverticulosis. Appendix is not identified. No secondary findings of appendiceal disease. Small uncomplicated fat-containing umbilical and inguinal hernias. Remaining solid and hollow organs of the abdomen and pelvis are within normal limits. No free air or free fluid. Bone windows demonstrate essentially nondisplaced posterior left included 8 through 11th rib fractures. Multilevel degenerative changes of the spine. No additional appreciated acute fractures. IMPRESSION: 1. Minimally displaced posterior included left 8th through 11th rib fractures with associated subsegmental atelectasis and trace effusion. CT chest would be helpful for further characterization. 2. Nonspecific bilateral perinephric fat stranding with uncomplicated nephrolithiasis and likely benign cysts. Additional fluid/fluid level superior left renal pole likely representing a hemorrhagic cyst. If old studies exist recommend making them available for comparison purposes. Otherwise recommend nonemergent follow-up ultrasound. Please see above for details. Electronically signed by Xavi Parker 03-12-2025 5:[address] 03/12/25 15:21 Clinical history: Injury Technique: Axial computed tomography images were obtained of the cervical spine without intravenous contrast. Sagittal and coronal reconstructions were obtained Findings: No definite acute fracture is identified. There is well corticated fragmentation of the tip of the dens that could be due to old injury. No listhesis is seen. No focal osseous lesion is evident. There is atlantoaxial osteoarthritis At C2-3, there is a mild disc bulge. There is no spinal stenosis. The neural foramen are patent At C3-4, there is a disc bulge without spinal stenosis. There is bilateral neural foramen narrowing that may affect the exiting C4 nerve roots At C4-5, there is a mild disc bulge without spinal stenosis. There is right neural foramen narrowing that may affect the right C5 nerve root At C5-6, there is a disc bulge without spinal stenosis. There is bilateral neural foramen narrowing that may affect the exiting C6 nerve roots At C6-7, there is a disc bulge. There is no spinal stenosis. The neural foramen are patent At C7-T1, there is a mild disc bulge. There is no spinal stenosis. The neural foramen are patent The lung apices appear clear. The visualized soft tissues of the neck appear unremarkable. No foreign body is seen Impression: 1. No definite acute cervical spine fracture 2. Fragmentation of the tip of the dens that could be due to old injury 3. Bilateral C3-4, right C4-5, and bilateral C5-6 neural foramen narrowing, which may affect the exiting nerve roots Electronically signed by Charles Mann 03-12-2025 6:[address] 03/12/25 15:21 Clinical history: Injury Technique: Axial computed tomography images were obtained of the chest after the administration of intravenous contrast Findings: There is bilateral lung base atelectasis. There is no pleural effusion or pneumothorax. There is no sign of pulmonary fibrosis or other diffuse interstitial process. No endobronchial lesion is seen There is no mediastinal, hilar, or axillary adenopathy. The thoracic aorta appears unremarkable with no sign of aneurysm or dissection. There is no pericardial effusion. There is coronary atherosclerosis There is a 6 cm right renal calculus. There is a 2.3 cm mixed low attenuation and high attenuation lesion in the upper left kidney. There are acute mildly displaced fractures of the left posterior seventh, eighth, ninth, and 10th ribs Impression: 1. Acute fractures of the left seventh through 10th ribs 2. No pneumothorax 3. Bilateral lung base atelectasis 4. Complex left renal lesion that may represent a proteinaceous or hemorrhagic cyst but is indeterminate in nature. A follow-up dedicated renal protocol abdominal CT or MRI could be obtained ACT 112: Positive. There are findings on this exam that require communication between the performing entity and the patient following Patient Test Result Information Act ([place] ACT 112) guidelines. Electronically signed by Charles Mann 03-12-2025 5:[address] 03/12/25 15:21 Clinical History: Fall Technique: Axial computed tomography images were obtained of the brain without intravenous contrast. Findings: There is diffuse cerebral atrophy, within expected limits for the patient's age. Areas of decreased attenuation are seen within the periventricular white matter, likely representing chronic small vessel ischemic disease. There is no definite sign of acute or old infarction. No intracranial hemorrhage is evident. No definite mass lesion is seen on this noncontrast examination. There is no midline shift or other form of herniation. No hydrocephalus is seen. There is cavum septum pellucidum and cavum vergae, normal variants No fracture is identified. The orbits and the visualized paranasal sinuses appear unremarkable. The mastoid air cells appear clear. Impression: 1. Cerebral atrophy and chronic small vessel ischemic disease 2. Otherwise unremarkable noncontrast CT of the brain Electronically signed by Charles Mann 03-12-2025 4:[address] 03/12/25 20:04 Exam(s): CT RENAL W/WO Contrast IV Amt: 90 ML OPTIRAY 320 EXAM: CT Abdomen Without and With Intravenous Contrast CLINICAL HISTORY: Reason for exam: evaluate for hemorrhage/contusion. TECHNIQUE: Axial computed tomography images of the abdomen without and with intravenous contrast. CTDI is 28.14 mGy and DLP is 2723.8 mGy-cm. Automated exposure control was utilized for the study. A dose lowering technique was utilized adhering to the principles of ALARA. CONTRAST: Patient received 90 ML OPTIRAY 320 of IV contrast COMPARISON: No relevant prior studies available. FINDINGS: Lung bases: 2.6 cm left upper pole complex renal cysts. 1.7 cm right renal cysts. 3.2 cm left renal cysts. Both kidneys opacify within excrete contrast in a normal symmetric fashion. Bibasilar dependent atelectasis with trace bilateral pleural effusions. Liver: Unremarkable. No mass. Gallbladder and bile ducts: Unremarkable. No calcified stones. No ductal dilation. Pancreas: Unremarkable. No mass. No ductal dilation. Spleen: Unremarkable. No splenomegaly. Adrenals: Unremarkable. No mass. Kidneys and ureters: Unremarkable. No solid mass. No obstructing stones. No hydronephrosis. Stomach and bowel: Unremarkable. No obstruction. No mucosal thickening. Intraperitoneal space: Unremarkable. No free air. No significant fluid collection. Bones/joints: Minimally displaced left posterior 10th and 9th rib fractures. No dislocation. Soft tissues: Unremarkable. Vasculature: Unremarkable. No abdominal aortic aneurysm. Lymph nodes: Unremarkable. No enlarged lymph nodes. IMPRESSION: Trace bilateral pleural effusions Nondisplaced left posterior 9th and 10th rib fractures Bilateral renal cysts unremarkable on this exam No hydroureteronephrosis. Electronically signed by: Eren Sim MD 03/12/25 21:53 PM Humerus X-Ray 03/12/25 20:16 Exam(s): XR LEFT HUMERUS, 2+ views EXAM: XR Left Humerus, 2 or More Views CLINICAL HISTORY: Reason for exam: L arm pain post fall. TECHNIQUE: Frontal and lateral views of the left humerus. COMPARISON: No relevant prior studies available. FINDINGS: Bones/joints: Unremarkable. No acute fracture. No dislocation. Soft tissues: Unremarkable. IMPRESSION: Normal left humerus x-rays. Electronically signed by: Eren Sim MD 03/12/25 22:26 PM Shoulder X-Ray 03/12/25 20:16 Exam(s): XR LEFT SHOULDER, 2+ views EXAM: XR Left Shoulder Complete, 2 or More Views CLINICAL HISTORY: Reason for exam: L shoulder pain post fall. TECHNIQUE: Two or more views of the left shoulder. COMPARISON: No relevant prior studies available. FINDINGS: Bones/joints: Unremarkable. No acute fracture. No dislocation. Soft tissues: Unremarkable. IMPRESSION: Normal left shoulder x-rays. Electronically signed by: Eren Sim MD 03/12/25 22:23 PM Orbit X-Ray 03/13/25 01:07 EXAM: XR orbits for MRI CLINICAL HISTORY: Screening for foreign body for MRI TECHNIQUE: X-ray facial bones, 3 views: OM (occipitomental), OF (occipitofrontal), and lateral projections. COMPARISON: None. FINDINGS: Facial bones: No acute fracture is identified. The mandible appears intact. The visualized temporomandibular joints appear grossly normal. The nasal bone appears intact. The upper cervical spine appears unremarkable. Sinuses: The frontal, ethmoid, sphenoid, and maxillary sinuses are clear. There is no evidence of sinusitis or mucosal thickening. Orbits: The bony margins of the orbits are normal. No fractures or abnormal bone formation are seen. No intraocular/intraorbital metallic or radiodense foreign body seen. Nasal Cavity: The nasal septum is central. Bilateral prominent inferior nasal turbinates are present. Mastoid Air Cells: The mastoid air cells are clear. There is no evidence of mastoiditis. Soft Tissues: No abnormal masses, swelling, or calcifications are identified. IMPRESSION: No radiographic evidence of acute fracture or dislocation. No intraocular/intraorbital metallic or radiodense foreign body seen. Disclaimer: A subtle bone abnormality or fracture may not be readily apparent on X-rays, thus clinical correlation and further imaging including follow-up CT, MRI, or follow-up X-rays are advised as needed. Electronically signed by Tam Kim 03-13-2025 03:53 AM Cervical Spine MRI 03/13/25 08:00 EXAM: MR cervical spine wo con CLINICAL HISTORY: fragmentation of tip of dens on cervical spine CT TECHNIQUE: Multiplanar multiecho MRI sequences of the cervical spine without contrast were obtained and submitted for diagnostic interpretation. COMPARISON: None available. FINDINGS: Vertebral Alignment: There is normal alignment of the cervical spine without evidence of fracture or subluxation. Vertebral Bodies and Intervertebral Discs: A small, well-corticated bony fragment (7 x 6 mm) with a focal defect is noted involving the posterosuperior aspect of the tip of the odontoid process of the C2 vertebra. Disc desiccation is noted involving all cervical intervertebral discs. There are degenerative changes involving the cervical spine in the form of multilevel marginal osteophytes, disc space reduction, and facetal arthrosis. [id number] analysis: C2-C3: There is no focal disc pathology, spinal canal stenosis, or neural foraminal stenosis. C3-C4: A diffuse disc bulge causes effacement of the bilateral neural foramina and indents the bilateral exiting nerve roots. C4-C5: There is no focal disc pathology, spinal canal stenosis, or neural foraminal stenosis. C5-C6: A posterior disc bulge with peridiscal osteophytes causes narrowing of the bilateral neural foramina, which impinges the bilateral exiting nerve roots. C6-C7: A posterior disc osteophyte complex causes effacement of the bilateral neural foramina and impinges the bilateral exiting nerve roots. C7-T1: There is no focal disc pathology, spinal canal stenosis, or neural foraminal stenosis. Spinal Cord and Nerve Roots: The spinal cord demonstrates normal signal intensity and caliber. There is no evidence of cord compression or intradural pathology. The nerve roots appear unremarkable bilaterally. There is no significant disc pathology. No exiting nerve root or spinal cord compression. There is normal morphology of the ligamentum flava. There is no arthropathy of the uncovertebral and zygapophyseal joints. There is no significant spinal canal or neural foraminal stenosis. Soft Tissues: The paraspinal soft tissues appear normal without evidence of abnormal signal intensity or mass lesion. IMPRESSION: A small, well-corticated bony fragment (7 x 6 mm) with a focal defect is noted involving the posterosuperior aspect of the tip of the odontoid process of the C2 vertebra without obvious adjacent marrow edema?likely an old fracture fragment. Cervical spondylosis changes as described above. Electronically signed by Tam Kim 03-13-2025 06:18 AM Chest X-Ray 03/13/25 09:00 EXAM: XR chest 1V portable CLINICAL HISTORY: multiple rib fractures TECHNIQUE: An X-ray image of the chest was obtained in the AP projection. COMPARISON: 03/12/2025. FINDINGS: Pulmonary Parenchyma: Unchanged mild haziness is present in the bilateral lower zones. Unchanged mild bilateral pleural effusion is present, with obscured costophrenic recesses. Heart and Mediastinum: The cardiac shadow is normal. No mediastinal widening or masses are seen. No hilar or mediastinal lymphadenopathy is present. Bony Thorax: Fractures of the left posterior 7th, 8th, 9th, and 10th ribs are seen. No pneumothorax is noted. Soft Tissues: The soft tissues overlying the chest wall are unremarkable. A small loose body is seen just above the right acromioclavicular joint. IMPRESSION: 1. Unchanged mild haziness in the bilateral lower zones. 2. Unchanged mild bilateral pleural effusion with obscured costophrenic recesses. 3. Unchanged left posterior 7th, 8th, 9th, and 10th rib fractures. 4. No significant interval changes. Electronically signed by Juan Cruz 03-13-2025 07:54 AM Medications Administered Home Medications Medication Instructions Recorded Confirmed Last Taken amlodipine 5 mg tablet (Norvasc) 5 mg PO DAILY 07/10/21 03/12/25 Unknown celecoxib 200 mg capsule (Celebrex) 200 mg PO DAILY 07/10/21 03/12/25 Unknown omeprazole 20 mg capsule,delayed 20 mg PO DAILY 07/10/21 03/12/25 Unknown release cholecalciferol (vitamin D3) 25 25 mcg PO DAILY 09/09/21 03/12/25 Unknown mcg (1,000 unit) capsule aspirin 81 mg chewable tablet 81 mg PO DAILY 04/23/23 03/12/25 Unknown atorvastatin 20 mg tablet 20 mg PO DAILY #90 tabs 01/30/25 03/12/25 Unknown propranolol 20 mg tablet 0 mg PO BID 03/12/25 03/12/25 Unknown Active Medications Generic Name Dose Route Start Last Admin Trade Name Freq PRN Reason Stop Dose Admin Acetaminophen 650 mg 03/12/25 20:00 03/13/25 11:58 Acetaminophen 325 Mg Tab PO 04/11/25 19:59 Not Given Q4H VIOLETTE Amlodipine Besylate 5 mg 03/13/25 09:00 03/13/25 09:25 Amlodipine Besylate 5 Mg Tab PO 04/12/25 08:59 5 mg DAILY VIOLETTE Administration Atorvastatin Calcium 20 mg 03/13/25 09:00 03/13/25 09:25 Atorvastatin 20 Mg Tab PO 04/12/25 08:59 20 mg DAILY VIOLETTE Administration Enoxaparin Sodium 40 mg 03/13/25 10:45 03/13/25 11:01 Enoxaparin Inj 40 Mg/0.4 Ml Syr SQ 04/12/25 10:44 40 mg DAILY VIOLETTE Administration Lidocaine 1 patch 03/13/25 10:45 03/13/25 11:52 Lidocaine 5% 1 Patch TD 04/12/25 10:44 1 patch QAM VIOLETTE Administration Methocarbamol 500 mg 03/12/25 21:24 03/13/25 09:24 Methocarbamol 500 Mg Tablet PO 04/11/25 21:23 500 mg TID PRN Administration back/rib spasm Miscellaneous 1 each 03/12/25 21:00 03/12/25 22:08 Remove Lidoderm Patch N/A 04/11/25 20:59 Not Given DAILY@2100 VIOLETTE Miscellaneous 1 each 03/13/25 08:59 03/13/25 09:25 Remove Nicoderm Patch N/A 04/12/25 08:58 1 each DAILY@0859 VIOLETTE Administration Nicotine 1 patch 03/13/25 10:45 03/13/25 11:01 Nicotine 14 Mg/24 Hr Patch TD 04/12/25 10:44 1 patch DAILY@0900 VIOLETTE Administration Ondansetron HCl 4 mg 03/12/25 22:23 03/13/25 05:41 Ondansetron Inj 2 Mg/Ml 2 Ml Vial IV 04/11/25 22:22 4 mg Q4H PRN Administration Nausea Oxycodone HCl 5 mg 03/12/25 19:45 03/12/25 21:08 Oxycodone Hcl Ir 5 Mg Tab (Immediate Release) PO 03/26/25 19:44 5 mg Q6H PRN Administration Moderate Pain (Scale 4, 5, 6) Pantoprazole Sodium 40 mg 03/13/25 09:00 03/13/25 09:25 Pantoprazole 40 Mg Tab PO 04/12/25 08:59 40 mg DAILY VIOLETTE Administration Senna/Docusate Sodium 1 tab 03/13/25 09:00 03/13/25 09:29 Docusate Sodium/Senna 50/8.6mg Tab PO 04/12/25 08:59 1 tab QAM VIOLETTE Administration Coding Level of Care Code 81001 SUB INP/OBS CARE 2/35MIN Diagnoses Fall from standing W19.XXXA Encounter type: initial encounter Ribs, multiple fractures S22.42XA Encounter type: initial encounter Fracture type: closed Laterality: left Hypoxemia R09.[address] scan, cervical spine R93.7 ELAINE (obstructive sleep apnea) G47.33 Time Spent (min) 45 (1) Fall from standing Encounter type: initial encounter Qualified Code(s): W19.XXXA - Unspecified fall, initial encounter (2) Ribs, multiple fractures Encounter type: initial encounter Fracture type: closed Laterality: left Qualified Code(s): S22.42XA - Multiple fractures of ribs, left side, initial encounter for closed fracture
[2025-03-13] MEDS: MoRPHine SULFATE 4 MG/ML 1 ML CARP\\VIAL IV PRN (16:37)
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
[2025-03-13 19:27] VITALS: RESP 17; TEMP 98.1
[2025-03-13] MEDS: HYDROmorphone INJ 0.5 MG/0.5 ML SYR IV PRN (21:16)
[2025-03-13] MEDS: HYDROmorphone INJ 0.5 MG/0.5 ML SYR IV STA (21:21)
[2025-03-13 21:27] VITALS: BP 147/81; PULSE 78; O2SAT 94
--- NOTE | 2025-03-14 00:06 | Billing Data ---
Date of Service March 14, 2025 Coding Level of Care Code 61528 CRITICAL CARE
== END 2025-03-13 22:00 | disposition short-term general hospital (02) | DRG 184 ==
LOC: ED 14:24 → 1E 18:59 → SUATTDRO 18:59 → 1E 20:44